=== PATIENT | female | born 2005 | race Caucasian/White ===

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

== ENCOUNTER 2025-02-20 18:24 | Emergency (ER) | payer OTHER, SELFPAY ==
[2025-02-20 18:43] VITALS: BP 153/95; PULSE 62; RESP 18; TEMP 36.6; O2SAT 98; BMI 28.8
--- NOTE | 2025-02-20 18:46 | ED_ITS ---
HPI - General Adult General Chief complaint: ETOH/Substance Use Stated complaint: ?OD on Fentanyl Time Seen by Provider: 02/20/25 18:45 Source: patient, RN notes reviewed and old records reviewed Mode of arrival: ambulatory Limitations: no limitations History of Present Illness ED Provider: Mariana HARRIS narrative: 19-year-old female presents for evaluation of ?I was just freaking out, I am okay now. ? The patient presented to triage quite anxious and animated. She was eager to leave. We are able to calm her down and she explain that she smoked fentanyl and had a panic attack She reports that she was concerned that she was overdosing. She got a ride to the hospital She denies any pain, she denies any intent to harm. She reports that she has take home Narcan at home Related Data Allergies Allergy/AdvReac Type Severity Reaction Status Date / Time No Known Allergies (No Known Allergy Verified 02/20/25 18:44 Allergies*) Review of Systems Review of Systems: Somewhat limited due to patient being guarded PMFSH Past Medical History Medical History No pertinent past medical history Physical Exam ED Vital Signs: Vital Signs - 24 hr 02/20/25 18:43 Temperature 98 F Pulse Rate 62 Respiratory Rate 18 Blood Pressure 153/95 H Pulse Oximetry 98 Oxygen Delivery Method Room Air BMI result Body Mass Index 28.8 Const General: healthy appearing, comfortable, alert and awake Nutritional Appearance: well nourished Orientation/consciousness: patient oriented x3 HENMT Head: Yes normocephalic and Yes atraumatic Eyes Eyelids: Yes eyelids normal Conjunctivae: conjunctivae normal Sclerae: sclerae normal Corneas: corneas normal Pupils: Equal, round and reactive pupils present EOM: EOMs intact bilaterally Neck Neck: Yes full ROM Resp Effort & Inspection: normal respiratory effort, able to speak in complete sentences and not labored Cardio Rate: regular rate Rhythm: regular rhythm GI Inspection: No distended Palpation (GI): Soft to palpation, not firm, nontender, no guarding and not rigid Skin General skin exam: elasticity normal Neuro General: patient oriented x3 Cranial nerves: Yes CN's II-XII intact bilaterally, Yes Equal, round and reactive pupils present and Yes Bilaterally intact EOM present Cognition (Neuro): normal cognition Extrem Other: Moving all extremities well without any obvious deformities Medical Decision Making Medical Decision Making MDM Narrative: 19-year-old female presents for evaluation of what she thought was an overdose on fentanyl. The patient is wide awake, ambulating independently. She is answering questions appropriately. The patient states that she had a few accidental overdoses in the last few weeks. She reports that she has take home Narcan at home. She was offered by myself and nursing take home Narcan, crisis evaluation, detox evaluation and she declines all this. She is requesting to leave. She is mildly hypertensive, but otherwise vital signs are stable. She is awake, alert and oriented, she did not express any suicidal intent. We explained to her that we recommend she stay for further evaluation but she ultimately decided against medical advice Differential Diagnosis Differential Diagnoses: The differential diagnosis associated with the presentation includes Substance abuse Anxiety Polysubstance abuse Opiate abuse Discharge Plan Discharge Clinical Impression: Substance abuse, Anxiety Patient Disposition: Left Against Medical Advice Instructions: Polysubstance Use Disorder (ED), Anxiety (ED) Additional Instructions: You are opting to leave prior to complete evaluation. You are leaving against medical advice. You declined evaluation by a care team or detox team. You declined take home Narcan You may return at any time for further evaluation and management. Print Language: St Helenian
--- NOTE | 2025-02-20 18:47 | PC.NURSE ---
patient self presented to the ED with concern for feeling weird after smoking fentanyl. patient stated she had a panic attack and was concern that she was OD. patient states she got a ride to the hospital. patient denies SI/HI, states she feels safe. patient very motivated to leave, patient antsy. patient denied needing take home narcan, denies any need for resources. patient is awake, alert and oriented, ambulatory with steady gait. refused dc papers/reg and take home narcan.
--- OUTSIDE RECORDS SUMMARY | 2025-02-20 21:34 | XMS_ITS | Clinical Summary ---
Author Organization [facility] Address [address] [place] [address] Phone Care Team Providers Care Pound Attendant Name Role Phone Physician, No Pcp Primary Care Provider Unavaila ble Allergies No known active allergies Medications hydrOXYzine HCL (ATARAX) 25 mg tablet Take 2 tablets (50 mg total) by mouth every 6 (six) hours for 3 days. 24 each 5 Active ondansetron ODT (ZOFRAN-ODT) 4 mg disintegrating tablet Let 1 tablet dissolve under the tongue three times daily as needed for nausea or vomiting. 10 tablet 5 01/31/20 25 famotidine (PEPCID) 20 mg tablet Take 1 tablet (20 mg total) by mouth 2 (two) times a day for 15 days. 30 tablet 5 02/08/20 25 ciprofloxacin (CIPRO) 500 mg tablet Take 1 tablet (500 mg total) by mouth 2 (two) times a day for 10 days. 20 tablet 5 02/12/20 25 ondansetron ODT (ZOFRAN-ODT) 4 mg disintegrating tablet Let 1 tablet dissolve under the tongue three times daily as needed for nausea or vomiting. 12 tablet 5 02/09/20 25 valACYclovir (VALTREX) 1 gram tablet Take 1 tablet (1,000 mg total) by mouth 2 (two) times a day for 7 days. 14 each 5 02/09/20 25 Active Problems No known active problems Encounters Date Type Department Care Team Description 02/01/2025 7:47 PM EDT - 02/01/2025 8:55 PM EDT Emergency [facility] Emergency [address] [phone] Lazaro Agosto MD Perichondritis of auricle, right (Primary Dx); Dyspepsia; Exposure to herpes Discharge Disposition: Home or Self Care 01/23/2025 5:05 PM EDT - 01/23/2025 7:08 PM EDT Emergency [facility] Emergency [address] [place] [address] Rich Sanchez MD Nausea and vomiting, unspecified vomiting type (Primary Dx); Alcoholic intoxication without complication (CMS/[facility] V24); Hypokalemia; Hypomagnesemia; Alcohol abuse Discharge Disposition: Home or Self Care 01/19/2025 7:28 PM EDT - 01/19/2025 7:55 PM EDT Emergency [facility] Emergency [address] [place] [phone] Panic attack as reaction to stress (Primary Dx); Homeless Discharge Disposition: Home or Self Care from Last 3 Months Surgical History Surgery Date Site/Laterality Comments OTHER SURGICAL HISTORY PROCEDURE: DENIES PREVIOUS SURGERY Medical History Medical History Date Comments Asthma DX:Asthma Strep throat 05/30/12 DX:Strep throat Wrist fracture, left 08/21/2013 DX:Wrist fr acture, left; COMMENT: [facility] Family History Medical History Relation Name Comments Asthma Brother 1 Relation Name Status Comments Brother 1 Brother 2 Alive 06/05 Father Alive Mother Alive Sister 1 Alive 07/06 Sister 2 Alive 08/2009 Social History Tobacco Use Types Packs/Day Years Used Date Smoking Tobacco: Every Day Cigarettes Smokeless Tobacco: Never Tobacco Cessation:Ready to Q uit: Not Asked; Counseling Given: Not Answered Alcohol Use Standard Drinks/Week Comments Not Currently 0 (1 standard drink = 0.6 oz pur e alcohol) Comments Unknown Sex and Gender Information Value Date Recorded Sex Assigned at Female 07/24/2024 2:56 PM EDT Legal Sex Female 3:36 AM EST Gender Identity Female 07/24/2024 2:56 PM EDT Sexual Orientation Choose not to disclose 2024 2:56 PM EDT Obstetrics History Last Filed Vital Signs Vital Sign Reading Time Taken Comments Blood Pressure 129/80 02/01/2025 8:09 PM EDT Pulse 75 02/01/2025 8:09 PM EDT Temperature 36.5 C (97.7 F) 02/01/2025 8:09 PM EDT Respiratory Rate 17 02/01/2025 8:09 PM EDT Oxygen Saturation 99% 02/01/2025 8:09 PM EDT Inhaled Oxygen Concentration - - Weight 83.9 kg (185 lb) 02/01/2025 7:17 PM EDT Height 170.2 cm (5' 7 ) 02/01/2025 7:17 PM EDT Body Mass Index 28.98 02/01/2025 7:17 PM EDT Plan of Treatment Health Maintenance Due Date Last Done Comments Gonorrhea/Chlamydia Screening 2003 Pneumococcal Vaccine: Pediatrics (0 to 5 Years) and At-Risk Patients (6 to 49 Years) (1 of 1 - PPSV23, PCV20, or PCV21) 08/07/2009 11/10/2004, 02/18/2004, 2003, Additional history exists Meningococcal B Vaccine (1 of 2 - Standard) 2019 Annual Well Child Visit (3-21 years old) 04/05/2022 04/30/2017, 04/23/2016, 04/22/2015, Additional history exists Cholesterol Screening (Lipid Panel) 04/05/2022 Social Influencers of Health Screening 04/05/2022 Depression Screening 05/03/2024 Cervical Cancer Screening: Pap Smear 08/07/2024 COVID-19 Vaccine ( - season) 2025 05/09/2021, 07/22/2020, 07/01/2020 Influenza Vaccine (#1) 2025 , 03/08/2020, 03/05/2017, Additional history exists DTaP,Tdap,and Td Vaccines (7 - Td or Tdap) 04/22/2025 04/22/2015, 01/20/2008, 11/10/2004, Additional history exists RSV Immunization Adult Patients (1 - 1-dose 75+ series) 08/07/2078 HIB Vaccines Completed 11/10/2004, 10/31, 02/18/2004, Additional history exists IPV Vaccines Completed 01/20/2008, 10/31, 06/10/2004, Additional history exists MMR Vaccines Completed 01/20/2008, 08/22/2004 Varicella Vaccines Completed 01/20/2008, 08/22/2004 HPV Vaccines Completed 11/14/2015, 11/2015, 04/22/2015 HIV Screening Completed 10/10/2018 Hepatitis C Screening Completed 10/10/2018 Hepatitis B Vaccines Completed 10/13/2018, 06/10/2004, 2003, Additional history exists Meningococcal ACWY Vaccine Completed 09/15/2019, Hepatitis A Vaccines Completed 02/25/2021, 09/20/19 RSV Immunization Patients Under 20 months Aged Out No longer eligible based on patient's age to complete this topic Procedures Procedure Name Priority Date/Time Associated Diagnosis Comments BAIN URINE CULTURE TUBE STAT 02/01/2025 8:13 PM EDT URINALYSIS WITH REFLEX MICROSCOPIC AND CULTURE STAT 02/01/2025 8:13 PM EDT URINALYSIS WITH REFLEX MICROSCOPIC AND CULTURE STAT 02/01/2025 8:13 PM EDT CULTURE URINE STAT 02/01/2025 8:13 PM EDT LIPASE STAT Add-on 02/01/2025 7:38 PM EDT CBC WITH AUTO DIFFERENTIAL STAT 02/01/2025 7:38 PM EDT COMPREHENSIVE METABOLIC PANEL STAT 02/01/2025 7:38 PM EDT CBC AND DIFFERENTIAL STAT 02/01/2025 7:38 PM EDT ETHANOL STAT 01/23/2025 5:26 PM EDT CBC WITH AUTO DIFFERENTIAL STAT 01/23/2025 5:26 PM EDT LIPASE STAT 01/23/2025 5:26 PM EDT MAGNESIUM STAT 01/23/2025 5:26 PM EDT COMPREHENSIVE METABOLIC PANEL STAT 01/23/2025 5:26 PM EDT CBC AND DIFFERENTIAL STAT 01/23/2025 5:26 PM EDT POC , URINE DIAGNOSTIC STAT 01/23/2025 5:19 PM EDT URINALYSIS WITH REFLEX MICROSCOPIC STAT 01/23/2025 5:16 PM EDT URINALYSIS WITH REFLEX MICROSCOPIC STAT 01/23/2025 5:16 PM EDT from Last 3 Months Results * (ABNORMAL) Urinalysis with reflex microscopic and culture (02/01/2025 8:13 PM EDT) Specific Bowers Urine 1.027 1.003 - 1.030 LAB URINALYSIS - AUTOMATED METHOD 02/01/2025 9:05 PM [facility] pH, Urine 6.0 5.0 - 8.0 pH LAB URINALYSIS - AUTOMATED METHOD 02/01/2025 9:05 PM [facility] Leukocytes, Urine Small(A) Negative LAB URINALYSIS - AUTOMATED METHOD 02/01/2025 9:05 PM [facility] Nitrite, Urine Negative Negative LAB URINALYSIS - AUTOMATED METHOD 02/01/2025 9:05 PM [facility] Protein, Urine 30(A) <=Trace mg/dL LAB URINALYSIS - AUTOMATED METHOD 02/01/2025 9:05 PM [facility] Glucose, Urine Negative Negative mg/dL LAB URINALYSIS - AUTOMATED METHOD 02/01/2025 9:05 PM [facility] Ketones, Urine Trace(A) Negative mg/dL LAB URINALYSIS - AUTOMATED METHOD 02/01/2025 9:05 PM [facility] Urobilinogen, Urine 1.0 0.2 - 1.0 mg/dL LAB URINALYSIS - AUTOMATED METHOD 02/01/2025 9:05 PM [facility] Bilirubin, Urine Negative Negative LAB URINALYSIS - AUTOMATED METHOD 02/01/2025 9:05 PM [facility] Blood, Urine Negative Negative LAB URINALYSIS - AUTOMATED METHOD 02/01/2025 9:05 PM [facility] RBC, Urine 5.9(H) 0 - 4 /HPF LAB URINALYSIS - AUTOMATED METHOD 02/01/2025 9:05 PM [facility] WBC, Urine 22.1(H) 0 - 4 /HPF LAB URINALYSIS - AUTOMATED METHOD 02/01/2025 9:05 PM [facility] Squamous Epithelial, Urine 82(H) 0 - 60 /LPF LAB URINALYSIS - AUTOMATED METHOD 02/01/2025 9:05 PM [facility] Bacteria, Urine Few(A) Negative /HPF LAB URINALYSIS - AUTOMATED METHOD 02/01/2025 9:05 PM [facility] Hyaline Casts, Urine 4.8(H) 0 - 3 /LPF LAB URINALYSIS - AUTOMATED METHOD 02/01/2025 9:05 PM [facility] Urine Urine specimen obtained by clean catch procedure / Unknown Non-blood Collection / Unknown 02/01/2025 8:13 PM EDT 02/01/2025 8:36 PM EDT us Dino Carbajal MD LAB URINE ORDERABLES Danuta charlette Result [facility] [address] [place] [address], * Bain urine culture tube (02/01/2025 8:13 PM EDT) Pathologist [facility] Extra Tube Hold for add-ons. 02/01/2025 10:02 PM EDT [facility] Comment:Auto resulted. Urine Urine specimen obtained by clean catch procedure / Unknown Non-blood Collection / Unknown 02/01/2025 8:13 PM EDT 02/01/2025 8:36 PM EDT Dino Carbajal MD LAB URINE ORDERABLES Danuta l Result Performing Organization Address City/[facility]/ZIP Co de Phone Number [facility] [address] [place] [address], [place] [phone] * Culture urine (02/01/2025 8:13 PM EDT) [facility] Culture, Urine >100,000 CFU/mL Mixed bacterial morphotypes present suggestive of possible contamination during collection. Suggest appropriate recollection if clinically indicated. 02/03/2025 12:39 PM EDT [facility] Urine Urine specimen obtained by clean catch procedure / Unknown Non-blood Collection / Unknown 02/01/2025 8:13 PM EDT 02/01/2025 9:04 PM EDT Dino Carbajal MD LAB MICROBIOLOGY - GENERA L ORDERABLES Final Result Performing Organization Address [facility]/ZIP Co de Phone Number [facility] [address] [place] [address], [place] [phone] * (ABNORMAL) CBC auto differential (02/01/2025 7:38 PM EDT) Only the most recent of2 resultswithin the time period is included. Pathologist [facility] WBC 5.1 4.8 - 10.8 K/[facility] LAB HEMETOLOGY METHOD 02/01/2025 7:59 PM EDT [facility] RBC 4.90(H) 3.80 - 4.80 M/[facility] LAB HEMETOLOGY METHOD 02/01/2025 7:59 PM EDT [facility] Hemoglobin 14.2 11.5 - 16.0 g/dL LAB HEMETOLOGY METHOD 02/01/2025 7:59 PM EDT [facility] Hematocrit 44.8 35.0 - 47.0 % LAB HEMETOLOGY METHOD 02/01/2025 7:59 PM EDT [facility] MCV 91.4 79.0 - 98.0 FL LAB HEMETOLOGY METHOD 02/01/2025 7:59 PM EDT [facility] MCH 29.0 27.0 - 32.0 pcg LAB HEMETOLOGY METHOD 02/01/2025 7:59 PM EDT [facility] MCHC 31.7(L) 32.0 - 37.0 g/dL LAB HEMETOLOGY METHOD 02/01/2025 7:59 PM [facility] RDW 13.4 11.0 - 15.0 % LAB HEMETOLOGY METHOD 02/01/2025 7:59 PM EDT [facility] Platelets 231 130 - 400 K/mcL LAB HEMETOLOGY METHOD 02/01/2025 7:59 PM [facility] MPV 10.6 7.0 - 11.0 FL LAB HEMETOLOGY METHOD 02/01/2025 7:59 PM [facility] NRBC 0.0 <1.0 % LAB HEMETOLOGY METHOD 02/01/2025 7:59 PM EDT [facility] NRBC Absolute 0.00 <0.10 K/mcL LAB HEMETOLOGY METHOD 02/01/2025 7:59 PM EDT [facility] Neutrophils Relative 47.2 % LAB HEMETOLOGY METHOD 02/01/2025 7:59 PM EDT [facility] Lymphocytes Relative 33.1 % LAB HEMETOLOGY METHOD 02/01/2025 7:59 PM EDT [facility] Monocytes Relative 11.5 % LAB HEMETOLOGY METHOD 02/01/2025 7:59 PM EDT [facility] Eosinophils Relative 6.0 % LAB HEMETOLOGY METHOD 02/01/2025 7:59 PM EDT [facility] Basophils Relative 1.0 % LAB HEMETOLOGY METHOD 02/01/2025 7:59 PM EDT [facility] Immature Granulocytes Relative 1.2 % LAB HEMETOLOGY METHOD 02/01/2025 7:59 PM EDT [facility] Neutrophils Absolute 2.43 1.50 - 7.00 K/mcL LAB HEMETOLOGY METHOD 02/01/2025 7:59 PM EDT [facility] Lymphocytes Absolute 1.70 1.00 - 5.00 K/mcL LAB HEMETOLOGY METHOD 02/01/2025 7:59 PM EDT [facility] Monocytes Absolute 0.59 0.20 - 1.00 K/mcL LAB HEMETOLOGY METHOD 02/01/2025 7:59 PM EDT [facility] Eosinophils Absolute 0.31 0.00 - 0.50 K/mcL LAB HEMETOLOGY METHOD 02/01/2025 7:59 PM EDT [facility] Basophils Absolute 0.05 0.00 - 0.20 K/mcL LAB HEMETOLOGY METHOD 02/01/2025 7:59 PM EDT [facility] Immature Granulocytes Absolute 0.06(H) 0.00 - 0.03 K/mcL LAB HEMETOLOGY METHOD 02/01/2025 7:59 PM EDT [facility] Blood Venous blood specimen / Unknown Venipuncture / Unknown 02/01/2025 7:38 PM EDT 02/01/2025 7:46 PM EDT us Dino Carbajal MD LAB BLOOD ORDERABLES Danuta ovalles Result [facility] [address] [place] [address], [place] [phone] * Lipase (02/01/2025 7:38 PM EDT) Only the most recent of2 resultswithin the time period is included. Lipase 41 13 - 75 unit/L LAB CHEMISTRY METHOD 02/01/2025 8:17 PM EDT [facility] Blood Venous blood specimen / Unknown Venipuncture / Unknown 02/01/2025 7:38 PM EDT 02/01/2025 7:46 PM EDT Lazaro Agosto MD LAB BLOOD ORDERABLES Final Resul t [facility] [address] [place] [address], [place] [phone] * Comprehensive metabolic panel (02/01/2025 7:38 PM EDT) Only the most recent of2 resultswithin the time period is included. Sodium 135 133 - 145 mmol/L LAB CHEMISTRY METHOD 02/01/2025 8:18 PM EDT [facility] Potassium 4.2 3.5 - 5.5 mmol/L LAB CHEMISTRY METHOD 02/01/2025 8:18 PM [facility] Chloride 100 96 - 110 mmol/L LAB CHEMISTRY METHOD 02/01/2025 8:18 PM [facility] CO2 30 21 - 32 mmol/L LAB CHEMISTRY METHOD 02/01/2025 8:18 PM T [facility] Anion Gap 5 3 - 11 LAB CHEMISTRY METHOD 02/01/2025 8:18 PM [facility] Glucose 97 70 - 100 mg/dL LAB CHEMISTRY METHOD 02/01/2025 8:18 PM [facility] BUN 6 5 - 25 mg/dL LAB CHEMISTRY METHOD 02/01/2025 8:18 PM [facility] Creatinine 0.68 0.50 - 1.10 mg/dL LAB CHEMISTRY METHOD 02/01/2025 8:18 PM [facility] eGFR 127 >=60 mL/min/1. 73m2 LAB CHEMISTRY METHOD 02/01/2025 8:18 PM [facility] Comment:Calculation based on the Chronic Kidney Disease Epidemiology Collaboration (CKD-EPI) equation refit without adjustment for race. BUN/Creatinine Ratio 8.8 LAB CHEMISTRY METHOD 02/01/2025 8:18 PM [facility] Calcium 9.5 8.5 - 10.5 mg/dL LAB CHEMISTRY METHOD 02/01/2025 8:18 PM [facility] AST (SGOT) 23 10 - 42 unit/L LAB CHEMISTRY METHOD 02/01/2025 8:18 PM [facility] ALT (SGPT) 29 10 - 60 unit/L LAB CHEMISTRY METHOD 02/01/2025 8:18 PM [facility] Alkaline Phosphatase 59 42 - 121 unit/L LAB CHEMISTRY METHOD 02/01/2025 8:18 PM [facility] Total Protein 7.5 6.0 - 8.0 g/dL LAB CHEMISTRY METHOD 02/01/2025 8:18 PM [facility] Albumin 4.1 3.2 - 5.0 g/dL LAB CHEMISTRY METHOD 02/01/2025 8:18 PM [facility] Total Bilirubin 0.5 0.0 - 1.4 mg/dL LAB CHEMISTRY METHOD 02/01/2025 8:18 PM [facility] Blood Venous blood specimen / Unknown Venipuncture / Unknown 02/01/2025 7:38 PM EDT 02/01/2025 7:46 PM EDT us Dino Carbajal MD LAB BLOOD ORDERABLES Danuta l Result [facility] [address] [place] [address], * (ABNORMAL) Magnesium (01/23/2025 5:26 PM EDT) Magnesium 1.6(L) 1.9 - 2.6 mg/dL LAB CHEMISTRY METHOD 01/23/2025 6:17 PM EDT [facility] Blood Venous blood specimen / Unknown Venipuncture / Unknown 01/23/2025 5:26 PM EDT 01/23/2025 5:46 PM EDT Rich Sanchez MD LAB BLOOD ORDERABLES Final R esult Performing Organization Address [facility] Co de Phone Number [facility] [address] [place] [address], * (ABNORMAL) Ethanol (01/23/2025 5:26 PM EDT) [facility] Ethanol Level 116(H) 0 - 10 mg/dL LAB CHEMISTRY METHOD 01/23/2025 6:17 PM EDT [facility] Blood Venous blood specimen / Unknown Venipuncture / Unknown 01/23/2025 5:26 PM EDT 01/23/2025 5:46 PM EDT Rich Sanchez MD LAB BLOOD ORDERABLES Final R esult [facility] [address] [place] [address], [place] [phone] * POC , urine manually resulted (01/23/2025 5:19 PM EDT) HCG, Ur POC Negative Negative POC hCG Int QC Pass? Yes Yes Urine Urine specimen obtained by clean catch procedure / Unknown 01/23/2025 5:19 PM EDT Rich Sanchez MD POINT OF CARE TEST ENTER/BHAVESH T ORDERABLES Final Result * (ABNORMAL) Urinalysis with reflex microscopic (01/23/2025 5:16 PM EDT) Specific Bowers Urine 1.023 1.003 - 1.030 LAB URINALYSIS - AUTOMATED METHOD 01/23/2025 5:59 PM [facility] pH, Urine 6.5 5.0 - 8.0 pH LAB URINALYSIS - AUTOMATED METHOD 01/23/2025 5:59 PM [facility] Leukocytes, Urine Negative Negative LAB URINALYSIS - AUTOMATED METHOD 01/23/2025 5:59 PM [facility] Nitrite, Urine Negative Negative LAB URINALYSIS - AUTOMATED METHOD 01/23/2025 5:59 PM [facility] Protein, Urine Trace <=Trace mg/dL LAB URINALYSIS - AUTOMATED METHOD 01/23/2025 5:59 PM [facility] Glucose, Urine Negative Negative mg/dL LAB URINALYSIS - AUTOMATED METHOD 01/23/2025 5:59 PM [facility] Ketones, Urine Trace(A) Negative mg/dL LAB URINALYSIS - AUTOMATED METHOD 01/23/2025 5:59 PM [facility] Urobilinogen, Urine 1.0 0.2 - 1.0 mg/dL LAB URINALYSIS - AUTOMATED METHOD 01/23/2025 5:59 PM [facility] Bilirubin, Urine Negative Negative LAB URINALYSIS - AUTOMATED METHOD 01/23/2025 5:59 PM [facility] Blood, Urine Negative Negative LAB URINALYSIS - AUTOMATED METHOD 01/23/2025 5:59 PM [facility] Urine Urine specimen obtained by clean catch procedure / Unknown Non-blood Collection / Unknown 01/23/2025 5:16 PM EDT 01/23/2025 5:45 PM EDT us Rich Sanchez MD LAB URINE ORDERABLES Final R esult [facility] ([facility]) [facility] [address] [place] [address], [place] [phone] from Last 3 Months Insurance [facility] MEDICAID ADVANTAGE Care Teams Pound Attendant Relationship Specialty Start Date End Date Physician, No Pcp PCP - General 11/15/24
== END 2025-02-20 18:53 | disposition left against medical advice (07) ==
PROVIDERS: Emergency Provider Emergency Medicine
DX: F11.90 Opioid use, unspecified, uncomplicated (principal); F41.0 Panic disorder [episodic paroxysmal anxiety]; F41.1 Generalized anxiety disorder
CPT/HCPCS: 99281; 99282

== ENCOUNTER 2025-03-03 16:51 | Emergency (ER) | payer OTHER, SELFPAY ==
--- OUTSIDE RECORDS SUMMARY | 2018-12-22 06:45 | XMS_ITS | Continuity of Care Document ---
Author Organization [facility] vices Address [address] [place] [address] Phone Care Team Providers Care Aircraft Designer Name Role Phone Fercho Lind RDH Unavailable [...] Diagnoses Date Provider Providers Copied on Encounter [facility], [address] [place] [address], [address], [place] tel:[phone] [facility] Dental Problems related to other legal circumstancesRisk for dental caries, high 2-201 9 Diogo Brantley. 500 [facility], [id number] [address] [place] [address], [id number] , [place]. tel:[phone] OFFICE/OUTPA TIENT VISIT, NEW [facility], [address] [place], [address], [place] tel:[phone] [facility] Pediatrics MDE (chief complaint) Problems related to other legal circumstancesDieta ry counseling and surveillanceEncoun ter for exam of ears and hearing w/o abnormal findingsEncounter for exam of eyes and vision w/o abnormal findingsMild intermittent asthma without complicationMultip le allergiesMyopia of both eyesObesity (BMI 30.0-34.9) 9 Bills Kailee. [address], [id number] [address], [place], [address], [place]. 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
--- NOTE | ~2025-03-03 | CT_ITS ---
CLINICAL HISTORY: R ear infection pus drainage from ear --- Additional Notes or Special Instructions: +mastoid ttp CT temporal bone without contrast Comparison: None provided Findings: Right temporal bone: Mild thickening of the right tympanic membrane and mild skin thickening within the external auditory canal. Middle ear ossicles are intact. No fluid in the middle ear cavity. Unremarkable cochlea and semicircular canals. Seventh nerve courses are unremarkable. Mastoid air cells are clear. Left temporal bone: No exterrnal auditory canal pathology. Tympanic membranes intact. Middle ear ossicles are intact. No fluid in the middle ear cavity. Unremarkable cochlea and semicircular canals. Seventh nerve courses are unremarkable. Mastoid air cells are clear. Temporomandibular joints are intact. Unremarkable orbital contents. Mild mucosal thickening left maxillary sinus No foreign bodies. IMPRESSION: Mild thickening of the right tympanic membrane and mild skin thickening within the right external auditory canal. No other acute findings. This document has been electronically signed by: Viridiana Pedraza MD on 03/03/2025 18:56:21
[2025-03-03 17:04] VITALS: BP 127/82; PULSE 77; RESP 18; TEMP 36.6; O2SAT 94; BMI 28.6
--- NOTE | 2025-03-03 17:04 | ED_ITS ---
HPI - Ear Problem General Chief complaint: Ear Problems Stated complaint: rt ear infection Time Seen by Provider: 03/03/25 19:45 Source: patient, RN notes reviewed and old records reviewed Mode of arrival: ambulatory History of Present Illness ED Provider: Radha Simms PA-C HPI Narrative: 19-year-old female with no significant past medical history presenting to ED complaining of persistent right ear infection with pus drainage noted today. [facility] she went to urgent care a few days ago and was started on Augmentin which is causing her nausea/vomiting. Admits to taking about 3 days' worth of antibiotic. 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 States this is her 4th ear infection to the same ear. Denies hearing loss, injury, fever, chills, sore throat Related Data Previous Rx's ?Medication ?Instructions ?Recorded acetaminophen 500 mg tablet 500 mg PO Q6H PRN fever or pain 03/03/25 (Tylenol Extra Strength) #14 tabs ciprofloxacin 0.3 %-dexamethasone 4 drp otic (ear) rig ht Q12H 7 days 03/03/25 0.1 % ear drops,suspension #7.5 mL hydrocortisone 0.5 % topical cream 1 appl topical BID PRN rash #28.4 03/03/25 grams ibuprofen 600 mg tablet 600 mg PO Q8H PRN fever or p ain 03/03/25 #14 tabs ondansetron 4 mg disintegrating 4 mg PO Q8H PRN nausea and 03/03/25 tablet vomiting #10 tabs Allergies Allergy/AdvReac Type Severity Reaction Status Date / Time No Known Allergies (No Known Allergy Verified 03/03/25 17:07 Allergies*) Review of Systems 2 Review of Systems: Yes all other systems are reviewed and are negative Constitutional: Constitutional: Reports as per [facility] Past Medical History Attestation statement: The following information was validated with the patient. Source: old records reviewed Medical History No pertinent past medical history Social History Social History Advance Directives: No Advance Directives Information Provided: No Do you have a plan to hurt others: No Plan Physical Exam 2 Vital Signs: Vital Signs: Last Vital Signs Temp 97.9 F 03/03/25 17:04 Pulse 77 03/03/25 17:04 Resp 18 03/03/25 17:04 BP 127/82 03/03/25 17:04 Pulse Ox 94 03/03/25 17:04 O2 Del Method Room Air 03/03/25 17:04 BMI result Body Mass Index 28.6 Const: General: cooperative, healthy appearing and no acute distress O rientation/consciousness: patient oriented x3 Limitations: no limitations HEENT: Head: Yes normal to inspection and Yes atraumatic Ears: hearing grossly normal bilaterally, TM normal on the left, mastoids normal on the right tender, Abnormal EAC present edema on the right and EAC tenderness; no otic discharge, external ear abnormal auricular tenderness and pain with movement of external ear and TM abnormal with loss of landmarks on the right and scarred on the right; not erythematous General nose exam: Normal external nose present Face and sinus: Yes normal facial exam Mouth: Normal oral and palatal mucosa present Throat: Yes uvula midline, No peritonsillar mass and No uvular edema Eyes: General: appearance normal, both eyes and all related structures EOM: EOMs intact bilaterally Neck: Neck: Yes normal visual inspection and Yes no meningeal signs Resp: Effort & Inspection: normal respiratory effort and no respiratory distress Cardio: Rate: regular rate Skin: Wounds: no wounds Neuro: General: patient oriented x3, tone normal and no meningeal signs C ranial nerves: Yes CN's II-XII intact bilaterally Gait exam (Neuro): Normal gait present Extrem: General: Yes normal to inspection Course Course Course Narrative: This is a Rapid Medical Exam performed in triage by Radha Simms PA-C. Full HPI, ROS and PE to be performed by primary ED provider. 19-year-old female presenting to the ED c/o persistent right ear infection with pus drainage today. States went to urgent care a few days ago was started on Augmentin however is nauseous/vomiting with taking medication. States was also started on ear drops however has not picked them up yet due to insurance preauthorization. States this is her 4th antibiotic for this ear infection. PE: + swollen external ear. + mastoid and tragus tenderness Plan: Labs, CT -labs reassuring CT mastoid IMPRESSION: Mild thickening of the right tympanic membrane and mild skin thickening within the right external auditory canal. No other acute findings. > had lengthy discussion with the patient about compliance with oral antibiotics and her nausea > she would like to try Zofran with continuation of current antibiotic. Will not change oral abx at this time. Will also prescribe Ciprodex drops. Upon discharge she reports that she has eczema on her feet, requesting a cream for eczema. Discussed with patient she needs to have close follow up with ENT/her PCP. Results discussed with patient including worrisome signs and symptoms and strict return precautions, and when to return to the emergency department. They verbalized understanding and feel safe for discharge at this time. Medical Decision Making Medical Decision Making [facility] Narrative: 19-year-old female with no significant past medical history presenting to ED complaining of persistent right ear infection with pus drainage noted today. On exam vital signs stable, NAD, nontoxic appearing, PE as above. Right external ear/auditory canal w/edema & swelling. No odor. No active drainage noted. + mastoid tenderness. Concern for otitis externa vs media vs mastoiditis vs ?malignant otitis externa Plan: Labs, CT, ENT follow up Please refer to course for remaining clinical decision making, interpretation of labs/imaging results, and discussions with consultants and/or family members. Differential Diagnosis Differential Diagnoses: The differential diagnosis associated with the presentation includes As above Admission/Observation Consideration of admission/observation: Escalation of care including admission/observation considered Lab Data [facility] Lab Attestation statement: I reviewed the patient's lab results. 03/03/25 17:29 03/03/25 17:29 Labs: Lab Results 03/03/25 Range/Units 17:29 WBC 4.5 L (4.8-10.8) X10*3/uL RBC 4.61 (4.20-5.50) X10*6/uL Hgb 13.1 (12.0-16.0) g/dl Hct 39.6 (37.0-47.0) % MCV 85.9 (80.0-98.0) fL MCH 28.4 (27.0-33.0) pg MCHC 33.1 (31.0-35.0) g/dl RDW 13.1 (11.0-16.0) % Plt Count 208 (160-400) X10*3/uL MPV 11.1 (9.4-12.3) fL Immature Gran % (Auto) 0.2 (0.0-0.4) % Neut % (Auto) 43.8 L (45-73) % Lymph % (Auto) 37.0 (20-40) % [place] % (Auto) 8.3 (2-11) % Eos % (Auto) 10.3 H (0-4) % Baso % (Auto) 0.4 (0-2) % Lymph # (Auto) 1.7 (1.2-4.9) X10*3/uL [place] # (Auto) 0.4 (0.1-1.2) X10*3/uL Eos # (Auto) 0.5 H (0.0-0.4) X10*3/uL Baso # (Auto) 0.0 (0.0-0.2) X10*3/uL Abs Immat Gran (auto) 0.01 (0.00-0.03) X10*3/uL Absolute Neuts (auto) 2.0 (2.0-8.3) x10*3/uL Absolute Nucleated RBC 0.000 (0.0-0.012) X10*3/uL Nucleated RBC % (auto) 0.0 (0.0-0.2) /100WBC ESR 8 (0-20) MM/HR Sodium 139 (135-145) mmol/L Potassium 4.1 (3.3-5.1) mmol/L Chloride 108 (96-108) mmol/L Carbon Dioxide 25 (22-29) mmol/L Anion Gap 10 L (12-20) BUN 10 (9-16) mg/dL Creatinine 0.80 (0.5-1.4) mg/dL Estim Creat Clear Calc 123.0 Estimated GFR > 60 Random Glucose 93 (60-115) mg/dL Calcium 9.0 (8.4-10.2) mg/dL C-Reactive Protein < 0.10 (< or = 0.50) mg/dL Independent Interpretation I performed an independent interpretation of an: CT Scan Radiology Impression Discussion of test interpretation with radiology: I have reviewed the radiologist's reading. External Record Review External record reviewed: Inpatient record, Office record, Outpatient record, Prior outpatient labs, Prior outpatient radiology, Primary care record and Outside ED record Tests considered The following testing was considered but not selected: As above Prescription Management I considered prescription management with: Pain Medication and Antibiotic Chronic Conditions Patient?s care impacted by: Other Social Determinants Patient?s care significantly limited by Social Determinants of Health including: Low income and Problems related to primary support group Discharge Plan Discharge Clinical Impression: Otitis externa Patient Disposition: Home, Self-Care Instructions: Swimmer's [facility] (ED) Additional Instructions: Your CAT scan and blood work is reassuring Continue taking previously prescribed antibiotic. Take with food. Zofran as an antinausea medication which will help with nausea and vomiting Ciprodex drops are prescription ear drops with a steroid which will help with swelling/UR infection Take ibuprofen and Tylenol as needed for pain Hydrocortisone cream as a steroid cream for your eczema. Avoid application to face You need to follow up with your PCP as well as ENT. Call to make an appointment If her symptoms persist or worsen, you develop any hearing loss, fevers, continued drainage from the ear return to the ED Prescriptions: New acetaminophen [Tylenol Extra Strength] 500 mg tablet 500 mg PO Q6H PRN (Reason: fever or pain) Qty: 14 0RF ibuprofen 600 mg tablet 600 mg PO Q8H PRN (Reason: fever or pain) Qty: 14 0RF ondansetron 4 mg tablet,disintegrating 4 mg PO Q8H PRN (Reason: nausea and vomiting) Qty: 10 0RF hydrocortisone 0.5 % cream 1 appl topical BID PRN (Reason: rash) Qty: 28.4 0RF ciprofloxacin-dexamethasone 0.3-0.1 % drops,suspension 4 drp otic (ear) right Q12H 7 Days Qty: 7.5 0RF Print Language: Malian
[2025-03-03 17:34] LABS: MANUAL DIFF FLAG NO
--- OUTSIDE RECORDS SUMMARY | 2025-03-03 17:34 | XMS_ITS | Clinical Summary ---
Author Organization [facility] Address [address] [place] [address] Phone Care Team Providers Care Accountant Supervisor Name Role Phone Physician, No Pcp Primary Care Provider Unavaila ble Allergies No known active allergies Medications hydrOXYzine HCL (ATARAX) 25 mg tablet Take 2 tablets (50 mg total) by mouth every 6 (six) hours for 3 days. 24 each 5 Active famotidine (PEPCID) 20 mg tablet Take 1 [...] Encounters Date Type Department Care Team Description 02/22/2025 2:56 PM EDT - 02/22/2025 6:24 PM EDT Emergency [facility] Emergency [address] [place] [address] Meche Horn MD Discharge Disposition: Left Against Medical Advice 02/01/2025 7:47 PM EDT - 02/01/2025 8:55 PM EDT Emergency [facility] Emergency [address] [place] [address] Lazaro Agosto MD Perichondritis of auricle, right (Primary Dx); Dyspepsia; Exposure to herpes Discharge Disposition: Home or Self Care 01/23/2025 5:05 PM EDT - 01/23/2025 7:08 PM EDT Emergency [facility] Emergency [address] [place] [address] Rich Sanchez MD Nausea and vomiting, unspecified vomiting type (Primary Dx); Alcoholic intoxication without complication ([facility] V24); Hypokalemia; Hypomagnesemia; Alcohol abuse Discharge Disposition: Home or Self Care 01/19/2025 7:28 PM EDT - 01/19/2025 7:55 PM EDT Emergency [facility] Emergency [address] [place] [address] Panic attack as reaction to stress (Primary Dx); Homeless Discharge Disposition: Home or Self Care from Last 3 Months Surgical History Surgery Date Site/Laterality Comments OTHER SURGICAL HISTORY PROCEDURE: DENIES PREVIOUS SURGERY Medical History Medical History Date Comments Asthma DX:Asthma Strep throat 05/30/12 DX:Strep throat Wrist fracture, left 08/21/2013 DX:Wrist fr acture, left; COMMENT: [facility] Family History Medical History Relation Name [...] Sign Reading Time Taken Comments Blood Pressure 119/68 02/22/2025 3:16 PM EDT Pulse 87 02/22/2025 3:16 PM EDT Temperature 37.3 C (99.1 F) 02/22/2025 3:16 PM EDT Respiratory Rate 18 02/22/2025 3:16 PM EDT Oxygen Saturation 96% 02/22/2025 3:16 PM EDT Inhaled Oxygen Concentration - - Weight 81.6 kg (180 lb) 02/22/2025 3:16 PM EDT Height 170.2 cm (5' 7 ) 02/22/2025 3:16 PM EDT Body Mass Index 28.19 02/22/2025 3:16 PM EDT Plan of Treatment Health Maintenance [...] Screening: Pap Smear 08/07/2024 COVID-19 Vaccine ( season) 2025 05/09/2021, 07/22/2020, 07/01/2020 Influenza Vaccine [...] microscopic and culture (02/01/2025 8:13 PM EDT) Pathologist [facility] Specific [place] Urine 1.027 1.003 - 1.030 LAB URINALYSIS - AUTOMATED METHOD 02/01/2025 9:05 PM [facility] pH, Urine 6.0 5.0 - 8.0 pH LAB URINALYSIS - AUTOMATED METHOD 02/01/2025 9:05 PM [facility] Leukocytes, Urine Small(A) Negative LAB URINALYSIS - AUTOMATED METHOD 02/01/2025 9:05 PM [facility] Nitrite, Urine Negative Negative LAB URINALYSIS - AUTOMATED METHOD 02/01/2025 9:05 PM [facility] Protein, Urine 30(A) <=Trace mg/dL LAB URINALYSIS - AUTOMATED METHOD 02/01/2025 9:05 PM [facility] Glucose, Urine Negative Negative mg/dL LAB URINALYSIS - AUTOMATED METHOD 02/01/2025 9:05 PM [facility] Ketones, Urine Trace(A) Negative mg/dL LAB URINALYSIS - AUTOMATED METHOD 02/01/2025 9:05 PM [facility] Urobilinogen, Urine 1.0 0.2 - 1.0 mg/dL LAB URINALYSIS - AUTOMATED METHOD 02/01/2025 9:05 PM [facility] Bilirubin, Urine Negative Negative LAB URINALYSIS - AUTOMATED METHOD 02/01/2025 9:05 PM [facility] Blood, Urine Negative Negative LAB URINALYSIS - AUTOMATED METHOD 02/01/2025 9:05 PM [facility] RBC, Urine 5.9(H) 0 - 4 /HPF LAB URINALYSIS - AUTOMATED METHOD 02/01/2025 9:05 PM [facility] WBC, Urine 22.1(H) 0 - 4 /HPF LAB URINALYSIS - AUTOMATED METHOD 02/01/2025 9:05 PM [facility] Squamous Epithelial, Urine 82(H) 0 - 60 /LPF LAB URINALYSIS - AUTOMATED METHOD 02/01/2025 9:05 PM [facility] Bacteria, Urine Few(A) Negative /HPF LAB URINALYSIS - AUTOMATED METHOD 02/01/2025 9:05 PM [facility] Hyaline Casts, Urine 4.8(H) 0 - 3 /LPF LAB URINALYSIS - AUTOMATED METHOD 02/01/2025 9:05 PM [facility] Urine Urine specimen obtained by clean catch procedure / Unknown Non-blood Collection / Unknown 02/01/2025 8:13 PM EDT 02/01/2025 8:36 PM EDT us Dino Carbajal MD LAB URINE ORDERABLES Danuta charlette Result [facility] [address] [place] [address], * Bain urine culture tube (02/01/2025 8:13 PM EDT) Pathologist [facility] Extra Tube Hold for add-ons. 02/01/2025 10:02 PM EDT [facility] Comment:Auto resulted. Urine Urine specimen obtained by clean catch procedure / Unknown Non-blood Collection / Unknown 02/01/2025 8:13 PM EDT 02/01/2025 8:36 PM EDT Dino Carbajal MD LAB URINE ORDERABLES Danuta l Result Performing Organization Address City/[facility]/ZIP Co de Phone Number [facility] [address] [place] [address], [place] [phone] * Culture urine (02/01/2025 8:13 PM EDT) [facility] Culture, Urine >100,000 CFU/mL Mixed bacterial morphotypes present suggestive of possible contamination during collection. Suggest appropriate recollection if clinically indicated. 02/03/2025 12:39 PM EDT [facility] Urine Urine specimen obtained by clean catch procedure / Unknown Non-blood Collection / Unknown 02/01/2025 8:13 PM EDT 02/01/2025 9:04 PM EDT Dino Carbajal MD LAB MICROBIOLOGY - GENERA L ORDERABLES Final Result Performing Organization Address City/[facility]/ZIP Co de Phone Number [facility] [address] [place] [address], [place] [phone] * (ABNORMAL) CBC auto differential (02/01/2025 7:38 PM EDT) Only the most recent of2 resultswithin the time period is included. Pathologist [facility] WBC 5.1 4.8 - 10.8 K/[facility] LAB HEMETOLOGY METHOD 02/01/2025 7:59 PM EDT [facility] RBC 4.90(H) 3.80 - 4.80 M/mcL LAB HEMETOLOGY METHOD 02/01/2025 7:59 PM EDT [facility] Hemoglobin 14.2 11.5 - 16.0 g/dL LAB HEMETOLOGY METHOD 02/01/2025 7:59 PM EDT [facility] Hematocrit 44.8 35.0 - 47.0 % LAB HEMETOLOGY METHOD 02/01/2025 7:59 PM EDT [facility] MCV 91.4 79.0 - 98.0 FL LAB HEMETOLOGY METHOD [facility] MCH 29.0 27.0 - 32.0 pcg LAB HEMETOLOGY METHOD 02/01/2025 7:59 PM [facility] MCHC 31.7(L) 32.0 - 37.0 g/dL LAB HEMETOLOGY METHOD 02/01/2025 7:59 PM [facility] RDW 13.4 11.0 - 15.0 % LAB HEMETOLOGY METHOD 02/01/2025 7:59 [facility] Platelets 231 130 - 400 K/mcL LAB HEMETOLOGY METHOD 02/01/2025 7:59 [facility] MPV 10.6 7.0 - 11.0 FL LAB HEMETOLOGY METHOD 02/01/2025 7:[facility] NRBC 0.0 <1.0 % LAB HEMETOLOGY METHOD 02/01/2025 7:59 [facility] NRBC Absolute 0.00 <0.10 K/mcL LAB HEMETOLOGY METHOD 02/01/2025 7:59 [facility] Neutrophils Relative 47.2 % LAB HEMETOLOGY METHOD 02/01/2025 7:59 [facility] Lymphocytes Relative 33.1 % LAB HEMETOLOGY METHOD 02/01/2025 7:59 PM EDT [facility] Monocytes Relative 11.5 % LAB HEMETOLOGY METHOD 02/01/2025 7:59 PM EDT [facility] Eosinophils Relative 6.0 % LAB HEMETOLOGY METHOD 02/01/2025 7:59 [facility] Basophils Relative 1.0 % LAB HEMETOLOGY METHOD 02/01/2025 7:59 PM EDT [facility] Immature Granulocytes Relative 1.2 % LAB HEMETOLOGY METHOD 02/01/2025 7:59 PM EDT [facility] Neutrophils Absolute 2.43 1.50 - 7.00 K/mcL LAB HEMETOLOGY METHOD 02/01/2025 7:59 [facility] Lymphocytes Absolute 1.70 1.00 - 5.00 K/mcL LAB HEMETOLOGY METHOD 02/01/2025 7:[facility] Monocytes Absolute 0.59 0.20 - 1.00 K/mcL LAB HEMETOLOGY METHOD 02/01/2025 7:59 PM EDT [facility] Eosinophils Absolute 0.31 0.00 - 0.50 K/mcL LAB HEMETOLOGY METHOD 02/01/2025 7:59 PM [facility] Basophils Absolute 0.05 0.00 - 0.20 K/mcL LAB HEMETOLOGY METHOD 02/01/2025 7:59 PM EDT [facility] Immature Granulocytes Absolute 0.06(H) 0.00 - 0.03 K/mcL LAB HEMETOLOGY METHOD 02/01/2025 7:59 PM [facility] Blood Venous blood specimen / Unknown Venipuncture / Unknown 02/01/2025 7:38 PM EDT 02/01/2025 7:46 PM EDT Dino Carbajal MD LAB BLOOD ORDERABLES Danuta l Result [facility] [address] [place] [address], * Lipase (02/01/2025 7:38 PM EDT) Only the most recent of2 resultswithin the time period is included. Lipase 41 13 - 75 unit/L LAB CHEMISTRY METHOD 02/01/2025 8:17 PM EDT [facility] Blood Venous blood specimen / Unknown Venipuncture / Unknown 02/01/2025 7:38 PM EDT 02/01/2025 7:46 PM EDT Lazaro Agosto MD LAB BLOOD ORDERABLES Final Resul t Performing Organization Address [facility] Co de Phone Number [facility] [address] [place] [address], * Comprehensive metabolic panel (02/01/2025 7:38 PM EDT) Only the most recent of2 resultswithin the time period is included. Sodium 135 133 - 145 mmol/L LAB CHEMISTRY METHOD 02/01/2025 8:18 PM [facility] Potassium 4.2 3.5 - 5.5 mmol/L LAB CHEMISTRY METHOD 02/01/2025 8:18 PM [facility] Chloride 100 96 - 110 mmol/L LAB CHEMISTRY METHOD 02/01/2025 8:18 PM T [facility] CO2 30 21 - 32 mmol/L LAB CHEMISTRY METHOD 02/01[facility]2025 8:[facility] Anion Gap 5 3 - 11 LAB CHEMISTRY METHOD 02/01/2025 8:18 PM [facility] Glucose 97 70 - 100 mg/dL LAB CHEMISTRY METHOD 02/01/2025 8:18 PM [facility] BUN 6 5 - 25 mg/dL LAB CHEMISTRY METHOD 02/01/2025 8:18 PM [facility] Creatinine 0.68 0.50 - 1.10 mg/dL LAB CHEMISTRY METHOD 02/01/2025 8:18 PM [facility] eGFR 127 >=60 mL/min/1. 73m2 LAB CHEMISTRY METHOD 02/01/2025 8:18 PM [facility] Comment:Calculation based on the Chronic Kidney Disease Epidemiology Collaboration (CKD-EPI) equation refit without adjustment for race. BUN/Creatinine Ratio 8.8 LAB CHEMISTRY METHOD 02/01/2025 8:18 PM [facility] Calcium 9.5 8.5 - 10.5 mg/dL LAB CHEMISTRY METHOD 02/01/2025 8:18 PM [facility] AST (SGOT) 23 10 - 42 unit/L LAB CHEMISTRY METHOD 02/01/2025 8:18 PM [facility] ALT (SGPT) 29 10 - 60 unit/L LAB CHEMISTRY METHOD 02/01/2025 8:18 PM [facility] Alkaline Phosphatase 59 42 - 121 unit/L LAB CHEMISTRY METHOD 02/01/2025 8:18 PM [facility] Total Protein 7.5 6.0 - 8.0 g/dL LAB CHEMISTRY METHOD 02/01/2025 8:18 PM [facility] Albumin 4.1 3.2 - 5.0 g/dL LAB CHEMISTRY METHOD 02/01/2025 8:18 PM [facility] Total Bilirubin 0.5 0.0 - 1.4 mg/dL LAB CHEMISTRY METHOD 02/01/2025 8:18 PM [facility] Blood Venous blood specimen / Unknown Venipuncture / Unknown 02/01/2025 7:38 PM EDT 02/01/2025 7:46 PM EDT Dino Carbajal MD LAB BLOOD ORDERABLES Danuta l Result Performing Organization Address [facility] Co de Phone Number [facility] [address] [place] [address], * (ABNORMAL) Magnesium (01/23/2025 5:26 PM EDT) Pathologist [facility] Magnesium 1.6(L) 1.9 - 2.6 mg/dL LAB CHEMISTRY METHOD 01/23/2025 6:17 PM EDT [facility] Blood Venous blood specimen / Unknown Venipuncture / Unknown 01/23/2025 5:26 PM EDT 01/23/2025 5:46 PM EDT Rich Sanchez MD LAB BLOOD ORDERABLES Final R esult Performing Organization Address [facility] de Phone Number [facility] [address] [place] [address], * (ABNORMAL) Ethanol (01/23/2025 5:26 PM EDT) [facility] Ethanol Level 116(H) 0 - 10 mg/dL LAB CHEMISTRY METHOD 01/23/2025 6:17 PM EDT [facility] Blood Venous blood specimen / Unknown Venipuncture / Unknown 01/23/2025 5:26 PM EDT 01/23/2025 5:46 PM EDT Rich Sanchez MD LAB BLOOD ORDERABLES Final R esult Performing Organization Address [facility] Co de Phone Number [facility] [address] [place] [address], [place] [phone] * POC , urine manually resulted (01/23/2025 5:19 PM EDT) HCG, Ur POC Negative Negative POC hCG Int QC Pass? Yes Yes Urine Urine specimen obtained by clean catch procedure / Unknown 01/23/2025 5:19 PM EDT Rich Sanchez MD POINT OF CARE TEST ENTER/BHAVESH T ORDERABLES Final Result * (ABNORMAL) Urinalysis with reflex microscopic (01/23/2025 5:16 PM EDT) Specific [place] Urine 1.023 1.003 - 1.030 LAB URINALYSIS - AUTOMATED METHOD 01/23/2025 5:59 PM EDT [facility] pH, Urine 6.5 5.0 - 8.0 pH LAB URINALYSIS - AUTOMATED METHOD 01/23/2025 5:59 PM [facility] Leukocytes, Urine Negative Negative LAB URINALYSIS - AUTOMATED METHOD 01/23/2025 5:59 PM [facility] Nitrite, Urine Negative Negative LAB URINALYSIS - AUTOMATED METHOD 01/23/2025 5:59 PM [facility] Protein, Urine Trace <=Trace mg/dL LAB URINALYSIS - AUTOMATED METHOD 01/23/2025 5:59 PM [facility] Glucose, Urine Negative Negative mg/dL LAB URINALYSIS - AUTOMATED METHOD 01/23/2025 5:59 PM [facility] Ketones, Urine Trace(A) Negative mg/dL LAB URINALYSIS - AUTOMATED METHOD 01/23/2025 5:59 PM [facility] Urobilinogen, Urine 1.0 0.2 - 1.0 mg/dL LAB URINALYSIS - AUTOMATED METHOD 01/23/2025 5:59 PM [facility] Bilirubin, Urine Negative Negative LAB URINALYSIS - AUTOMATED METHOD 01/23/2025 5:59 PM [facility] Blood, Urine Negative Negative LAB URINALYSIS - AUTOMATED METHOD 01/23/2025 5:59 PM [facility] Urine Urine specimen obtained by clean catch procedure / Unknown Non-blood Collection / Unknown 01/23/2025 5:16 PM EDT 01/23/2025 5:45 PM EDT us Rich Sanchez MD LAB URINE ORDERABLES Final R esult RADHA LEMUSFIELD GUTIERREZ ([facility]) [facility] [address] [place] [address], [place] [phone] from Last 3 Months Insurance [facility] [employer]AGE Care Teams Accountant Supervisor Relationship Specialty Start Date End Date Physician, No Pcp PCP - General 11/15/24
[2025-03-03 17:47] LABS: Hematocrit 39.6 % (37.0-47.0); Hemoglobin 13.1 g/dl (12.0-16.0); Imm Gran Abs Auto 0.01 X10*3/uL (0.00-0.03); Imm Gran Pct Auto 0.2 % (0.0-0.4); Lymphocytes Absolute Auto 1.7 X10*3/uL (1.2-4.9); Mean Corpuscular HGB Conc 33.1 g/dl (31.0-35.0); Mean Corpuscular Hemoglobin 28.4 pg (27.0-33.0); Mean Corpuscular Volume 85.9 fL (80.0-98.0); NRBC Abs Auto 0.000 X10*3/uL (0.0-0.012); NRBC Pct Auto 0.0 /100WBC (0.0-0.2); Platelet Count 208 X10*3/uL (160-400); Red Blood Count 4.61 X10*6/uL (4.20-5.50); White Blood Count 4.5 X10*3/uL (4.8-10.8)
[2025-03-03 17:49] LABS: Anion Gap 10 (12-20); Blood Urea Nitrogen 10 mg/dL (9-16); Calcium 9.0 mg/dL (8.4-10.2); Carbon Dioxide 25 mmol/L (22-29); Chloride 108 mmol/L (96-108); Creatinine Clr Calc Pharmacy 123.0; Estimated Glomerular Filt Rate > 60; Potassium 4.1 mmol/L (3.3-5.1); Sodium 139 mmol/L (135-145)
[2025-03-03 18:28] LABS: Erythrocyte Sedimentation Rate 8 MM/HR (0-20)
[2025-03-03 22:00] VITALS: BP 112/66; PULSE 67; RESP 18; TEMP 36.1; O2SAT 98
[2025-03-03 23:01] VITALS: BP 112/66; PULSE 67; RESP 18; TEMP 36.1; O2SAT 98
== END 2025-03-03 22:00 | disposition home or self-care (01) ==
PROVIDERS: Physician Assistant; Emergency Provider Emergency Medicine
DX: H60.91 Unspecified otitis externa, right ear (principal); H92.01 Otalgia, right ear
CPT/HCPCS: 36415; 70481; 80048; 85025; 85652; 86140; 99283; 99284

== ENCOUNTER → 2025-03-03 17:10 | Outpatient (BNV) | payer OTHER, SELFPAY | PROVIDERS: Visit Provider Radiology Diagnostic Radiology | DX: H73.91 Unspecified disorder of tympanic membrane, right ear (principal); H61.891 Other specified disorders of right external ear | CPT/HCPCS: 70481 ==

== ENCOUNTER 2025-03-10 21:46 | Emergency (ER) | payer OTHER, SELFPAY ==
--- OUTSIDE RECORDS SUMMARY | 2018-12-22 05:45 | XMS_ITS | Continuity of Care Document ---
Author Organization Formerly [facility] vices Address [address] [place] [address] Phone Care Team Providers Care Worm Packer Name Role Phone Fercho Lind RDH Unavailable Unavailable Allergies, Adverse Reactions, Alerts Substance Reaction Status Criticality banana Anaphylaxis Active No Information pineapple ItchingItching Active No Informatio n apple Anaphylaxis Active No Information carrot ItchingItching Active No Informatio n Medications Medication Instructions Dosage Effective Dates (start - stop) Status Comments MELATONIN (unknown strength) Not Available - Active HYDROXYZINE HCL (unknown strength) Not Available - Active Procedures Procedure Date MDE - Dental Screening For DCF 19 Caries Risk Assmt & Docmtn, With HighRis k Treatment Plan Not Started PURE TONE HEARING TEST, AIR VISUAL ACUITY SCREEN OFFICE/OUTPATIENT VISIT, NEW Advance Directives Directive Yes / No Effective Date File Name No Information Encounters Encounter Description Practice Location Reason(s) For Visit Diagnoses Date Provider Providers Copied on Encounter [facility], [address] [place] [address], [id number], [place] tel:[phone] [facility] Dental Problems related to other legal circumstancesRisk for dental caries, high 2-201 9 Diogo Brantley. [address] [facility], [id number] [address] [place] [address], [id number] , [place]. tel:[phone] OFFICE/OUTPA TIENT VISIT, NEW [facility], [address] [place], [address], [place] tel:[phone] [facility] Pediatrics MDE (chief complaint) Problems related to other legal circumstancesDieta ry counseling and surveillanceEncoun ter for exam of ears and hearing w/o abnormal findingsEncounter for exam of eyes and vision w/o abnormal findingsMild intermittent asthma without complicationMultip le allergiesMyopia of both eyesObesity (BMI 30.0-34.9) 9 Bills Kailee. [address], [id number] [address], [place], [address], [place]. tel:[phone] Family History Family Member Type Diagnosis Age At Onset No Information Payers Payer name Insurance type Covered green party ID Juan Carlos dominique(s) D Medicaid [id number] Social History Type Description Quantity Date Captured Comments Sex Female Smoking Status No Information Sexual Orientation Choose not to disclose Gender Identity Choose not to disclose 019 Chief Complaint And Reason For Visit No Information Reason For Referral Reason For Referral No Information Plan Of Treatment Date Type Action Status Goal Diet education completed History Of Present Illness Encounter Date Complaint History Of Prese nt Illness MDE She has mild int ermittent asthma on albuterol as needed. 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 She does not have an EpiPen.She has several behavioral health needs and is on atarax. She has had multiple psychiatric hospitalizations.She is sexually active. Last STD testing 1 month ago. She is interested in starting control.There are no other concerns at today's visit. Functional Status Date Functional Assessmen t No Information Instructions Date Instruction Additional Infor brianne -Schedule evaluation with eye doctor within 1 month Related to Myopia of both eyes -Obtain EpiPen RICH (within 2 weeks maximum) Related to Multiple allergies -Follow with primary care provider for routine well early childhood specialist, required immunizations and screenings, asthma and weight management within 1 month-Recommend dental evaluation every 6 months Related to Problems related to other legal circumstances Diet education Related to Dieta ry counseling and surveillance Exercise education Related to Di etary counseling and surveillance Assessments Type Assessment Date No Information Patient Care Teams Name Effective Dates (start - stop) Status Members No Information
--- OUTSIDE RECORDS SUMMARY | 2025-03-09 22:34 | XMS_ITS | Encounter Summary ---
Author Organization [facility] Address [address] [place] [address] Care Team Providers Care Website Programmer Name Role Phone Physician, No Pcp Primary Care Provider Unavaila ble Reason for Visit * Reason Comments Earache Ongoing right sided ear infection. Encounter Details Date Type Department Care Team (Late st Contact Info) Description 03/09/2025 10:34 PM EST - 03/09/2025 11:51 PM EST Emergency [facility] Emergency [address] [place] [id number] Discharge Disposition: Left Against Medical Advice Social History Tobacco Use Types Packs/Day Years Used Date Smoking Tobacco: Every Day Cigarettes Smokeless Tobacco: Never Alcohol Use Standard Drinks/Week Comments Not Currently 0 (1 standard drink = 0.6 oz pur e alcohol) Comments Unknown Sex and Gender Information Value Date Recorded Sex Assigned at Female 07/24/2024 2:56 PM EDT Legal Sex Female 3:36 AM EST Gender Identity Female 07/24/2024 2:56 PM EDT Sexual Orientation Choose not to disclose 2024 2:56 PM EDT documented as of this encounter Last Filed Vital Signs Vital Sign Reading Time Taken Comments Blood Pressure 119/82 03/09/2025 10:55 PM EST Pulse 61 03/09/2025 10:55 PM EST Temperature 37.3 C (99.1 F) 03/09/2025 10:55 PM EST Respiratory Rate 18 03/09/2025 10:55 PM EST Oxygen Saturation 100% 03/09/2025 10:55 PM EST Inhaled Oxygen Concentration - - Weight 81.6 kg (180 lb) 03/09/2025 10:55 PM EST Height 170.2 cm (5' 7 ) 03/09/2025 10:55 PM EST Body Mass Index 28.19 03/09/2025 10:55 PM EST documented in this encounter Functional Status * Are you deaf or do you have serious difficulty hearing? Answer Date of Assessment Author No 01/23/2025 5:22 PM Finn RN * Are you blind or do you have serious difficulty seeing, even when wearing glasses? Answer Date of Assessment Author No 01/23/2025 5:22 PM Finn RN * Do you have serious difficulty walking or climbing stairs? Answer Date of Assessment Author No 01/23/2025 5:22 PM Finn RN * Do you have serious difficulty dressing or bathing? Answer Date of Assessment Author No 01/23/2025 5:22 PM Finn RN * Because of a physical, mental, or emotional condition, do you have serious difficulty doing errandsalone such as visiting the doctor? Answer Date of Assessment Author No 01/23/2025 5:22 PM Finn RN * Calculated C-SSRS Risk Score (Lifetime/Recent) Answer Date of Assessment Author No Risk Indicated 03/09/2025 10:56 PM EST Doris Queen RN * [place] Suicide Severity Rating Scale (Screener/Recent Self-Report) Question Answer Date of Assessment Author 1. Wish to be (Past 1 Month) No 03/09/2025 10:56 PM Jermaine Rudolph RN documented as of this encounter Mental Status * Because of a physical, mental, or emotional condition, do you have serious difficulty concentrating, remembering, or making decisions? (5 years old or older) Answer Entry Date Author No 01/23/2025 5:22 PM Finn RN documented in this encounter Discharge Disposition Disposition Code Departure Means Destination Left Against Medical Advice documented in this encounter Progress Notes * Doris Canada RN - 03/09/2025 10:56 PM EST Pt has right ear infection for a few weeks, prescribed amoxicillin and pt took full course. Pt c/o ringing in the right ear and warmth. Denies fever/chills documented in this encounter Plan of Treatment Not on file documented as of this encounter Visit Diagnoses Not on filedocumented in this encounter Care Teams Website Programmer Relationship Specialty Start Date End Date Physician, No Pcp PCP - General 11/15/24 documented as of this encounter
[2025-03-10 21:52] VITALS: BP 121/76; PULSE 63; RESP 18; TEMP 36.1; O2SAT 100; BMI 28.2
--- NOTE | 2025-03-10 21:52 | ED_ITS ---
HPI - General Adult General Chief complaint: Ear Problems Stated complaint: teeth infection/ear pain/drug use Time Seen by Provider: 03/10/25 23:53 Related Data Previous Rx's ?Medication ?Instructions ?Recorded acetaminophen 500 mg tablet 500 mg PO Q6H PRN fever or pain 03/03/25 (Tylenol Extra Strength) #14 tabs ciprofloxacin 0.3 %-dexamethasone 4 drp otic (ear) rig ht Q12H 7 days 03/03/25 0.1 % ear drops,suspension #7.5 mL hydrocortisone 0.5 % topical cream 1 appl topical BID PRN rash #28.4 03/03/25 grams ibuprofen 600 mg tablet 600 mg PO Q8H PRN fever or p ain 03/03/25 #14 tabs ondansetron 4 mg disintegrating 4 mg PO Q8H PRN nausea and 03/03/25 tablet vomiting #10 tabs Allergies Allergy/AdvReac Type Severity Reaction Status Date / Time No Known Allergies (No Known Allergy Verified 03/10/25 21:55 Allergies*) [facility] Past Medical History Medical History No pertinent past medical history Social History Social History Smoked in Last 30 Days: Yes Substance Use Type: Heroin Advance Directives: No Do you have a plan to hurt others: No Plan Physical Exam ED Vital Signs: Vital Signs - 24 hr 03/10/25 21:52 Temperature 97.0 F Pulse Rate 63 Respiratory Rate 18 Blood Pressure 121/76 Pulse Oximetry 100 Oxygen Delivery Method Room Air BMI result Body Mass Index 28.2 Course Course Course Narrative: Medical screening exam performed. Please refer to detailed history, exam, evaluation, and management by primary provider. 19-year-old female, polysubstance use, persistent right ear pain and drainage with reported multiple emergency department visits. Patient last seen on March 03. Reports compliance with medications accept Augmentin. Admits to fentanyl use with her last use just prior to arrival. Positive tinnitus. No ENT follow up. No visualized drainage from right ear noted. Check labs. JS Medical Decision Making Lab Data 03/10/25 22:04 03/10/25 22:04 Labs: Lab Results 03/10/25 Range/Units 22:04 WBC 4.2 L (4.8-10.8) X10*3/uL RBC 4.51 (4.20-5.50) X10*6/uL Hgb 12.9 (12.0-16.0) g/dl Hct 39.1 (37.0-47.0) % MCV 86.7 (80.0-98.0) fL MCH 28.6 (27.0-33.0) pg MCHC 33.0 (31.0-35.0) g/dl RDW 13.2 (11.0-16.0) % Plt Count 210 (160-400) X10*3/uL MPV 11.4 (9.4-12.3) fL Immature Gran % (Auto) 0.2 (0.0-0.4) % Neut % (Auto) 32.3 L (45-73) % Lymph % (Auto) 46.1 H (20-40) % [place] % (Auto) 10.0 (2-11) % Eos % (Auto) 10.9 H (0-4) % Baso % (Auto) 0.5 (0-2) % Lymph # (Auto) 1.9 (1.2-4.9) X10*3/uL [place] # (Auto) 0.4 (0.1-1.2) X10*3/uL Eos # (Auto) 0.5 H (0.0-0.4) X10*3/uL Baso # (Auto) 0.0 (0.0-0.2) X10*3/uL Abs Immat Gran (auto) 0.01 (0.00-0.03) X10*3/uL Absolute Neuts (auto) 1.4 L (2.0-8.3) x10*3/uL Absolute Nucleated RBC 0.000 (0.0-0.012) X10*3/uL Nucleated RBC % (auto) 0.0 (0.0-0.2) /100WBC Sodium 142 (135-145) mmol/L Potassium 3.7 (3.3-5.1) mmol/L Chloride 109 H (96-108) mmol/L Carbon Dioxide 23 (22-29) mmol/L Anion Gap 14 (12-20) BUN 8 L (9-16) mg/dL Creatinine 0.75 (0.5-1.4) mg/dL Estim Creat Clear Calc 130.4 Estimated GFR > 60 Random Glucose 70 (60-115) mg/dL Calcium 9.1 (8.4-10.2) mg/dL Beta HCG, Quant < 2 mIU/mL Discharge Plan Discharge Clinical Impression: Chronic right ear pain Patient Disposition: Left W/O Completing Treatment Prescriptions: No Action acetaminophen [Tylenol Extra Strength] 500 mg tablet 500 mg PO Q6H PRN (Reason: fever or pain) Qty: 14 0RF ibuprofen 600 mg tablet 600 mg PO Q8H PRN (Reason: fever or pain) Qty: 14 0RF ondansetron 4 mg tablet,disintegrating 4 mg PO Q8H PRN (Reason: nausea and vomiting) Qty: 10 0RF hydrocortisone 0.5 % cream 1 appl topical BID PRN (Reason: rash) Qty: 28.4 0RF ciprofloxacin-dexamethasone 0.3-0.1 % drops,suspension 4 drp otic (ear) right Q12H 7 Days Qty: 7.5 0RF Discharge Date/Time: 03/10/25 23:54
[2025-03-10 22:09] LABS: MANUAL DIFF FLAG NO
[2025-03-10 22:11] LABS: Hematocrit 39.1 % (37.0-47.0); Hemoglobin 12.9 g/dl (12.0-16.0); Imm Gran Abs Auto 0.01 X10*3/uL (0.00-0.03); Imm Gran Pct Auto 0.2 % (0.0-0.4); Lymphocytes Absolute Auto 1.9 X10*3/uL (1.2-4.9); Mean Corpuscular HGB Conc 33.0 g/dl (31.0-35.0); Mean Corpuscular Hemoglobin 28.6 pg (27.0-33.0); Mean Corpuscular Volume 86.7 fL (80.0-98.0); NRBC Abs Auto 0.000 X10*3/uL (0.0-0.012); NRBC Pct Auto 0.0 /100WBC (0.0-0.2); Platelet Count 210 X10*3/uL (160-400); Red Blood Count 4.51 X10*6/uL (4.20-5.50); White Blood Count 4.2 X10*3/uL (4.8-10.8)
[2025-03-10 22:23] LABS: Anion Gap 14 (12-20); Blood Urea Nitrogen 8 mg/dL (9-16); Calcium 9.1 mg/dL (8.4-10.2); Carbon Dioxide 23 mmol/L (22-29); Chloride 109 mmol/L (96-108); Creatinine Clr Calc Pharmacy 130.4; Estimated Glomerular Filt Rate > 60; Potassium 3.7 mmol/L (3.3-5.1); Sodium 142 mmol/L (135-145)
--- OUTSIDE RECORDS SUMMARY | 2025-03-10 23:46 | XMS_ITS | Clinical Summary ---
Author Organization [facility] Address [address] [place] [address] Phone Care Team Providers Care Latin American Studies Director Name Role Phone Physician, No Pcp Primary Care Provider Unavaila ble Allergies No known active allergies Medications hydrOXYzine HCL (ATARAX) 25 mg tablet Take 2 tablets (50 mg total) by mouth every 6 (six) hours for 3 days. 24 each 5 Active ciprofloxacin (CIPRO) 500 mg tablet Take 1 [...] Encounters Date Type Department Care Team Description 03/09/2025 10:34 PM EST - 03/09/2025 11:51 PM EST [facility] Emergency [address] [place] [id number] Discharge Disposition: Left Against Medical Advice 02/22/2025 2:56 PM EDT - 02/22/2025 6:24 PM EDT [facility] Emergency [address] [place] [address] Meche Horn MD Discharge Disposition: Left Against Medical Advice 02/01/2025 7:47 PM EDT - 02/01/2025 8:55 PM EDT [facility] Emergency [address] [place] [address] Lazaro Agosto MD Perichondritis of auricle, right (Primary Dx); Dyspepsia; Exposure to herpes Discharge Disposition: Home or Self Care 01/23/2025 5:05 PM EDT - 01/23/2025 7:08 PM EDT [facility] Emergency [address] [place] [address] Rich Sanchez MD Nausea and vomiting, unspecified vomiting type (Primary Dx); Alcoholic intoxication without complication ([facility] V[facility]); Hypokalemia; Hypomagnesemia; Alcohol abuse Discharge Disposition: Home or Self Care 01/19/2025 7:28 PM EDT - 01/19/2025 7:55 PM EDT Emergency [facility] Emergency [address] [place] [address] Panic attack as reaction to stress (Primary Dx); Homeless Discharge Disposition: Home or Self Care from Last 3 Months Surgical History Surgery Date Site/Laterality Comments OTHER SURGICAL HISTORY PROCEDURE: DENIES PREVIOUS SURGERY Medical History Medical History Date Comments Asthma DX:Asthma Strep throat 05/30/12 DX:Strep throat Wrist fracture, left 08/21/2013 DX:Wrist fr acture, left; COMMENT: [facility] Family History Medical History Relation Name Comments [...] Mass Index 28.19 03/09/2025 10:55 PM EST Plan of Treatment Health Maintenance Due Date [...] and culture (02/01/2025 8:13 PM EDT) Pathologist [facility] Specific Daniel Urine 1.027 1.003 - 1.030 LAB URINALYSIS - AUTOMATED METHOD 02/01/2025 9:05 PM [facility] pH, Urine 6.0 5.0 - 8.0 pH LAB URINALYSIS - AUTOMATED METHOD 02/01/2025 9:05 PM [facility] Leukocytes, Urine Small(A) Negative LAB URINALYSIS - AUTOMATED METHOD 02/01/2025 9:05 PM [facility] Nitrite, Urine Negative Negative LAB URINALYSIS - AUTOMATED METHOD 02/01/2025 9:05 PM [facility] Protein, Urine 30(A) <=Trace mg/dL LAB URINALYSIS - AUTOMATED METHOD 02/01/2025 9:05 PM [facility] Glucose, Urine Negative Negative mg/dL LAB URINALYSIS - AUTOMATED METHOD 02/01/2025 9:05 PM [facility] Ketones, Urine Trace(A) Negative mg/dL LAB URINALYSIS - AUTOMATED METHOD 02/01/2025 9:05 PM [facility] Urobilinogen, Urine 1.0 0.2 - 1.0 mg/dL LAB URINALYSIS - AUTOMATED METHOD 02/01/2025 9:05 PM [facility] Bilirubin, Urine Negative Negative LAB URINALYSIS - AUTOMATED METHOD 02/01/2025 9:05 PM [facility] Blood, Urine Negative Negative LAB URINALYSIS - AUTOMATED METHOD 02/01/2025 9:05 PM [facility] RBC, Urine 5.9(H) 0 - 4 /HPF LAB URINALYSIS - AUTOMATED METHOD 02/01/2025 9:05 PM [facility] WBC, Urine 22.1(H) 0 - 4 /HPF LAB URINALYSIS - AUTOMATED METHOD 02/01/2025 9:05 PM [facility] Squamous Epithelial, Urine 82(H) 0 - 60 /LPF LAB URINALYSIS - AUTOMATED METHOD 02/01/2025 9:05 PM [facility] Bacteria, Urine Few(A) Negative /HPF LAB URINALYSIS - AUTOMATED METHOD 02/01/2025 9:05 PM [facility] Hyaline Casts, Urine 4.8(H) 0 - 3 /LPF LAB URINALYSIS - AUTOMATED METHOD 02/01/2025 9:05 PM [facility] Urine Urine specimen obtained by clean catch procedure / Unknown Non-blood Collection / Unknown 02/01/2025 8:13 PM EDT 02/01/2025 8:36 PM EDT us Dino Carbajal MD LAB URINE ORDERABLES Danuta charlette Result [facility] [address] [place] [address], * Bain urine culture tube (02/01/2025 8:13 PM EDT) Pathologist [facility] Extra Tube Hold for add-ons. 02/01/2025 10:02 PM EDT [facility] Comment:Auto resulted. Urine Urine specimen obtained by clean catch procedure / Unknown Non-blood Collection / Unknown 02/01/2025 8:13 PM EDT 02/01/2025 8:36 PM EDT Dino Carbajal MD LAB URINE ORDERABLES Danuta l Result Performing Organization Address City/[facility]/ZIP Co de Phone Number [facility] [address] [place] [address], [place] [phone] * Culture urine (02/01/2025 8:13 PM EDT) [facility] Culture, Urine >100,000 CFU/mL Mixed bacterial morphotypes present suggestive of possible contamination during collection. Suggest appropriate recollection if clinically indicated. 02/03/2025 12:39 PM EDT [facility] Urine Urine specimen obtained by clean catch procedure / Unknown Non-blood Collection / Unknown 02/01/2025 8:13 PM EDT 02/01/2025 9:04 PM EDT Dino Carbajal MD LAB MICROBIOLOGY - GENERA L ORDERABLES Final Result Performing Organization Address City/[facility]/ZIP Co de Phone Number [facility] [address] [place] [address], [place] [phone] * (ABNORMAL) CBC auto differential (02/01/2025 7:38 PM EDT) Only the most recent of2 resultswithin the time period is included. Pathologist [facility] WBC 5.1 4.8 - 10.8 K/[facility] LAB HEMETOLOGY METHOD 02/01/2025 7:59 PM EDT [facility] RBC 4.90(H) 3.80 - 4.80 M/mcL LAB HEMETOLOGY METHOD 02/01/2025 7:59 PM EDT [facility] Hemoglobin 14.2 11.5 - 16.0 g/dL LAB HEMETOLOGY METHOD 02/01/2025 7:59 PM EDT [facility] Hematocrit 44.8 35.0 - 47.0 % LAB HEMETOLOGY METHOD 02/01/2025 7:59 PM EDT [facility] MCV 91.4 79.0 - 98.0 FL LAB HEMETOLOGY METHOD [facility]25 [facility] MCH 29.0 27.0 - 32.0 pcg LAB HEMETOLOGY METHOD 02/01/2025 7:59 PM [facility] MCHC 31.7(L) 32.0 - 37.0 g/dL LAB HEMETOLOGY METHOD 02/01/2025 7:59 PM [facility] RDW 13.4 11.0 - 15.0 % LAB HEMETOLOGY METHOD 02/01/2025 7:59 [facility] Platelets 231 130 - 400 K/mcL LAB HEMETOLOGY METHOD 02/01/2025 7:59 [facility] MPV 10.6 7.0 - 11.0 FL LAB HEMETOLOGY METHOD 02/01/2025 7:59 [facility] NRBC 0.0 <1.0 % LAB HEMETOLOGY METHOD 02/01/2025 7:59 [facility] NRBC Absolute 0.00 <0.10 K/mcL LAB HEMETOLOGY METHOD 02/01/2025 7:59 [facility] Neutrophils Relative 47.2 % LAB HEMETOLOGY METHOD 02/01/2025 7:59 [facility] Lymphocytes Relative 33.1 % LAB HEMETOLOGY METHOD 02/01/2025 7:59 PM EDT [facility] Monocytes Relative 11.5 % LAB HEMETOLOGY METHOD 02/01/2025 7:59 PM EDT [facility] Eosinophils Relative 6.0 % LAB HEMETOLOGY METHOD 02/01/2025 7:59 [facility] Basophils Relative 1.0 % LAB HEMETOLOGY METHOD 02/01/2025 7:59 PM EDT [facility] Immature Granulocytes Relative 1.2 % LAB HEMETOLOGY METHOD 02/01/2025 7:59 PM EDT [facility] Neutrophils Absolute 2.43 1.50 - 7.00 K/mcL LAB HEMETOLOGY METHOD 02/01/2025 7[facility] Lymphocytes Absolute 1.70 1.00 - 5.00 K/mcL LAB HEMETOLOGY METHOD 02/01/2025 7:59 [facility] Monocytes Absolute 0.59 0.20 - 1.00 K/mcL LAB HEMETOLOGY METHOD 02/01/2025 7:59 PM EDT [facility] Eosinophils Absolute 0.31 0.00 - 0.50 K/mcL LAB HEMETOLOGY METHOD 02/01/2025 7:59 PM [facility] Basophils Absolute 0.05 0.00 - 0.20 K/mcL LAB HEMETOLOGY METHOD 02/01/2025 7:59 PM EDT [facility] Immature Granulocytes Absolute 0.06(H) 0.00 - 0.03 K/mcL LAB HEMETOLOGY METHOD 02/01/2025 7:59 PM [facility] Blood Venous blood specimen / Unknown Venipuncture / Unknown 02/01/2025 7:38 PM EDT 02/01/2025 7:46 PM EDT Dino Carbajal MD LAB BLOOD ORDERABLES Danuta l Result [facility] [address] [place] [address], * Lipase (02/01/2025 7:38 PM EDT) Only the most recent of2 resultswithin the time period is included. Lipase 41 13 - 75 unit/L LAB CHEMISTRY METHOD 02/01/2025 8:17 PM EDT [facility] Blood Venous blood specimen / Unknown Venipuncture / Unknown 02/01/2025 7:38 PM EDT 02/01/2025 7:46 PM EDT Lazaro Agosto MD LAB BLOOD ORDERABLES Final Resul t Performing Organization Address [facility] Co de Phone Number [facility] [address] [place] [address], * Comprehensive metabolic panel (02/01/2025 7:38 PM EDT) Only the most recent of2 resultswithin the time period is included. Sodium 135 133 - 145 mmol/L LAB CHEMISTRY METHOD 02/01/2025 8:18 PM [facility] Potassium 4.2 3.5 - 5.5 mmol/L LAB CHEMISTRY METHOD 02/01/2025 8:18 PM [facility] Chloride 100 96 - 110 mmol/L LAB CHEMISTRY METHOD 02/01/2025 8:18 PM T [facility] CO2 30 21 - 32 mmol/L LAB CHEMISTRY METHOD 02/01/2025 8:[facility] Anion Gap 5 3 - 11 LAB CHEMISTRY METHOD 02/01/2025 8:18 PM [facility] Glucose 97 70 - 100 mg/dL LAB CHEMISTRY METHOD 02/01/2025 8:18 PM [facility] BUN 6 5 - 25 mg/dL LAB CHEMISTRY METHOD 02/01/2025 8:18 PM [facility] Creatinine 0.68 0.50 - 1.10 mg/dL LAB CHEMISTRY METHOD 02/01/2025 8:18 PM [facility] eGFR 127 >=60 mL/min/1. 73m2 LAB CHEMISTRY METHOD 02/01/2025 8:18 PM [facility] Comment:Calculation based on the Chronic Kidney Disease Epidemiology Collaboration (CKD-EPI) equation refit without adjustment for race. BUN/Creatinine Ratio 8.8 LAB CHEMISTRY METHOD 02/01/2025 8:18 PM [facility] Calcium 9.5 8.5 - 10.5 mg/dL LAB CHEMISTRY METHOD 02/01/2025 8:18 PM [facility] AST (SGOT) 23 10 - 42 unit/L LAB CHEMISTRY METHOD 02/01/2025 8:18 PM [facility] ALT (SGPT) 29 10 - 60 unit/L LAB CHEMISTRY METHOD 02/01/2025 8:18 PM [facility] Alkaline Phosphatase 59 42 - 121 unit/L LAB CHEMISTRY METHOD 02/01/2025 8:18 PM [facility] Total Protein 7.5 6.0 - 8.0 g/dL LAB CHEMISTRY METHOD 02/01/2025 8:18 PM [facility] Albumin 4.1 3.2 - 5.0 g/dL LAB CHEMISTRY METHOD 02/01/2025 8:18 PM [facility] Total Bilirubin 0.5 0.0 - 1.4 mg/dL LAB CHEMISTRY METHOD 02/01/2025 8:18 PM [facility] Blood Venous blood specimen / Unknown Venipuncture / Unknown 02/01/2025 7:38 PM EDT 02/01/2025 7:46 PM EDT Dino Carbajal MD LAB BLOOD ORDERABLES Danuta l Result Performing Organization Address [facility] Co de Phone Number [facility] [address] [place] [address], * (ABNORMAL) Magnesium (01/23/2025 5:26 PM EDT) Pathologist [facility] Magnesium 1.6(L) 1.9 - 2.6 mg/dL LAB CHEMISTRY METHOD 01/23/2025 6:17 PM EDT [facility] Blood Venous blood specimen / Unknown Venipuncture / Unknown 01/23/2025 5:26 PM EDT 01/23/2025 5:46 PM EDT Rich Sanchez MD LAB BLOOD ORDERABLES Final R esult Performing Organization Address [facility] de Phone Number [facility] [address] [place] [address], * (ABNORMAL) Ethanol (01/23/2025 5:26 PM EDT) [facility] Ethanol Level 116(H) 0 - 10 mg/dL LAB CHEMISTRY METHOD 01/23/2025 6:17 PM EDT [facility] Blood Venous blood specimen / Unknown Venipuncture / Unknown 01/23/2025 5:26 PM EDT 01/23/2025 5:46 PM EDT Rich Sanchez MD LAB BLOOD ORDERABLES Final R esult Performing Organization Address [facility] Co de Phone Number [facility] [address] [place] [address], [place] [phone] * POC , urine manually resulted (01/23/2025 5:19 PM EDT) HCG, Ur POC Negative Negative POC hCG Int QC Pass? Yes Yes Urine Urine specimen obtained by clean catch procedure / Unknown 01/23/2025 5:19 PM EDT Rich Sanchez MD POINT OF CARE TEST ENTER/BHAVESH T ORDERABLES Final Result * (ABNORMAL) Urinalysis with reflex microscopic (01/23/2025 5:16 PM EDT) Specific Daniel Urine 1.023 1.003 - 1.030 LAB URINALYSIS - AUTOMATED METHOD 01/23/2025 5:59 PM EDT [facility] pH, Urine 6.5 5.0 - 8.0 pH LAB URINALYSIS - AUTOMATED METHOD 01/23/2025 5:59 PM [facility] Leukocytes, Urine Negative Negative LAB URINALYSIS - AUTOMATED METHOD 01/23/2025 5:59 PM [facility] Nitrite, Urine Negative Negative LAB URINALYSIS - AUTOMATED METHOD 01/23/2025 5:59 PM [facility] Protein, Urine Trace <=Trace mg/dL LAB URINALYSIS - AUTOMATED METHOD 01/23/2025 5:59 PM [facility] Glucose, Urine Negative Negative mg/dL LAB URINALYSIS - AUTOMATED METHOD 01/23/2025 5:59 PM [facility] Ketones, Urine Trace(A) Negative mg/dL LAB URINALYSIS - AUTOMATED METHOD 01/23/2025 5:59 PM [facility] Urobilinogen, Urine 1.0 0.2 - 1.0 mg/dL LAB URINALYSIS - AUTOMATED METHOD 01/23/2025 5:59 PM [facility] Bilirubin, Urine Negative Negative LAB URINALYSIS - AUTOMATED METHOD 01/23/2025 5:59 PM [facility] Blood, Urine Negative Negative LAB URINALYSIS - AUTOMATED METHOD 01/23/2025 5:59 PM [facility] Urine Urine specimen obtained by clean catch procedure / Unknown Non-blood Collection / Unknown 01/23/2025 5:16 PM EDT 01/23/2025 5:45 PM EDT us Rich Sanchez MD LAB URINE ORDERABLES Final R esult RADHA LEMUSFIELD GUTIERREZ ([facility]) [facility] [address] [place] [address], [place] [phone] from Last 3 Months Insurance [facility] MEDICAID ADVANTAGE Care Teams Latin American Studies Director Relationship Specialty Start Date End Date Physician, No Pcp PCP - General 11/15/24
== END 2025-03-10 23:54 | disposition left against medical advice (07) ==
PROVIDERS: Physician Assistant; Emergency Provider Emergency Medicine
DX: H92.01 Otalgia, right ear (principal); G89.29 Other chronic pain; Z53.29 Procedure and treatment not carried out because of patient's decision for other reasons
CPT/HCPCS: 36415; 80048; 84702; 85025; 99283

== ENCOUNTER 2025-04-05 22:08 | Emergency (ER) | payer OTHER, SELFPAY ==
--- OUTSIDE RECORDS SUMMARY | 2018-12-22 05:45 | XMS_ITS | Continuity of Care Document ---
Author Organization [facility] vices Address [address] [place] [address] Phone Care Team Providers Care Medical Sales Representative Name Role Phone Fercho Lind RDH Unavailable [...] Providers Copied on Encounter [facility], [address] [place] [address], [address], [place] tel:[phone] [facility] Dental Problems related to other legal circumstancesRisk for dental caries, high 2-201 9 Diogo Brantley. 500 [facility], [id number] [address] [place] [address], [id number] , [place]. tel:[phone] OFFICE/OUTPA TIENT VISIT, NEW [facility], [address] [place], [address], [place] tel:[phone] [facility] Pediatrics MDE (chief complaint) Problems related to other legal circumstancesDieta ry counseling and surveillanceEncoun ter for exam of ears and hearing w/o abnormal findingsEncounter for exam of eyes and vision w/o abnormal findingsMild intermittent asthma without complicationMultip le allergiesMyopia of both eyesObesity (BMI 30.0-34.9) 9 Bills Kailee. [address], [id number] [address], [place], [address], [place]. tel:[phone] Family History Family Member Type Diagnosis Age At Onset No Information Payers Payer name Insurance type Covered alliance party ID Juan Carlos dominique(s) D Medicaid [id number] Social History Type Description Quantity Date Captured [...] Information Instructions Date Instruction Additional Infor brianne -Obtain EpiPen RICH (within 2 weeks maximum) Related to Multiple allergies -Schedule evaluation with eye doctor within 1 month Related to Myopia of both eyes -Follow with primary care provider for routine well early childhood associate teacher, required immunizations and screenings, asthma and weight [...]
[2025-04-05 22:16] VITALS: BP 129/71; PULSE 69; RESP 18; TEMP 36.9; O2SAT 100; BMI 28.8
--- OUTSIDE RECORDS SUMMARY | 2025-04-05 22:42 | XMS_ITS | Clinical Summary ---
Author Organization [facility] Address [address] [place] [address] Phone Care Team Providers Care Repeater Chief Name Role Phone Physician, No Pcp Primary Care Provider Unavaila ble Allergies No known active allergies Medications hydrOXYzine HCL (ATARAX) 25 mg tablet Take 2 tablets (50 mg total) by mouth every 6 (six) hours for 3 days. 24 each 01/19/2025 Active Active Problems No known active problems Encounters Date Type Department Care Team Description 03/09/2025 10:34 PM EST - 03/09/2025 11:51 PM EST [facility] Emergency [address] [place] [phone] Discharge Disposition: Left Against Medical Advice 02/22/2025 2:56 PM EDT - 02/22/2025 6:24 PM EDT [facility] Emergency [address] [place] [phone] Meche Horn MD Discharge Disposition: Left Against Medical Advice 02/01/2025 7:47 PM EDT - 02/01/2025 8:55 PM EDT [facility] Emergency [address] [place] [phone] Lazaro Agosto MD Perichondritis of auricle, right (Primary Dx); Dyspepsia; Exposure to herpes Discharge Disposition: Home or Self Care 01/23/2025 5:05 PM EDT - 01/23/2025 7:08 PM EDT [facility] Emergency [address] [place] [phone] Rich Sanchez MD Nausea and vomiting, unspecified vomiting type (Primary Dx); Alcoholic intoxication without complication ([facility] V24); Hypokalemia; Hypomagnesemia; Alcohol abuse Discharge Disposition: Home or Self Care 01/19/2025 7:28 PM EDT - 01/19/2025 7:55 PM EDT Emergency [facility] Emergency [address] [place] [phone] Panic attack as reaction to stress (Primary Dx); Homeless Discharge Disposition: Home or Self Care from Last 3 Months Surgical History Surgery Date Site/Laterality Comments OTHER SURGICAL HISTORY PROCEDURE: DENIES PREVIOUS SURGERY Medical History Medical History Date Comments Asthma DX:Asthma Strep throat 05/30/12 DX:Strep throat Wrist fracture, left 08/21/2013 DX:Wrist fr acture, left; COMMENT: [facility] Family History Medical History Relation Name Comments [...] Completed 01/20/2008, 08/22/2004 HPV Vaccines Completed 11/14/2015, 03/11/2015, 04/22/2015 HIV Screening Completed 10/10/2018 Hepatitis C [...] and culture (02/01/2025 8:13 PM EDT) Specific [place] Urine 1.027 1.003 - 1.030 LAB URINALYSIS - AUTOMATED METHOD 02/01/2025 9:05 PM [facility] pH, Urine 6.0 5.0 - 8.0 pH LAB URINALYSIS - AUTOMATED METHOD 02/01/2025 9:05 PM [facility] Leukocytes, Urine Small(A) Negative LAB URINALYSIS - AUTOMATED METHOD 02/01/2025 9:05 PM [facility] Nitrite, Urine Negative Negative LAB URINALYSIS - AUTOMATED METHOD 02/01/2025 9:05 PM [facility] Protein, Urine 30(A) <=Trace mg/dL LAB URINALYSIS - AUTOMATED METHOD 02/01/2025 9:05 PM [facility] Glucose, Urine Negative Negative mg/dL LAB URINALYSIS - AUTOMATED METHOD 02/01/2025 9:05 PM [facility] Ketones, Urine Trace(A) Negative mg/dL LAB URINALYSIS - AUTOMATED METHOD 02/01/2025 9:05 PM [facility] Urobilinogen, Urine 1.0 0.2 - 1.0 mg/dL LAB URINALYSIS - AUTOMATED METHOD 02/01/2025 9:05 PM [facility] Bilirubin, Urine Negative Negative LAB URINALYSIS - AUTOMATED METHOD 02/01/2025 9:05 PM [facility] Blood, Urine Negative Negative LAB URINALYSIS - AUTOMATED METHOD 02/01/2025 9:05 PM EDT [facility] RBC, Urine 5.9(H) 0 - 4 /HPF LAB URINALYSIS - AUTOMATED METHOD 02/01/2025 9:05 PM EDT [facility] WBC, Urine 22.1(H) 0 - 4 /HPF LAB URINALYSIS - AUTOMATED METHOD 02/01/2025 9:05 PM [facility] Squamous Epithelial, Urine 82(H) 0 - 60 /LPF LAB URINALYSIS - AUTOMATED METHOD 02/01/2025 9:05 PM [facility] Bacteria, Urine Few(A) Negative /HPF LAB URINALYSIS - AUTOMATED METHOD 02/01/2025 9:05 PM [facility] Hyaline Casts, Urine 4.8(H) 0 - 3 /LPF LAB URINALYSIS - AUTOMATED METHOD 02/01/2025 9:05 PM [facility] Urine Urine specimen obtained by clean catch procedure / Unknown Non-blood Collection / Unknown 02/01/2025 8:13 PM EDT 02/01/2025 8:36 PM EDT us Dino Carbajal MD LAB URINE ORDERABLES Danuta l Result [facility] [address] [place] [address], [place] [phone] * Bain urine culture tube (02/01/2025 8:13 PM EDT) Extra Tube Hold for add-ons. 02/01/2025 10:02 PM EDT [facility] Comment:Auto resulted. Urine Urine specimen obtained by clean catch procedure / Unknown Non-blood Collection / Unknown 02/01/2025 8:13 PM EDT 02/01/2025 8:36 PM EDT us Dino Carbajal MD LAB URINE ORDERABLES Danuta l Result [facility] [address] [place] [address], [place] [phone] * Culture urine (02/01/2025 8:13 PM EDT) [facility] Culture, Urine >100,000 CFU/mL Mixed bacterial morphotypes present suggestive of possible contamination during collection. Suggest appropriate recollection if clinically indicated. 02/03/2025 12:39 PM EDT [facility] Urine Urine specimen obtained by clean catch procedure / Unknown Non-blood Collection / Unknown 02/01/2025 8:13 PM EDT 02/01/2025 9:04 PM EDT Dino Carbajal MD LAB MICROBIOLOGY - GENERA L ORDERABLES Final Result Performing Organization Address [facility] Co de Phone Number [facility] [address] [place] [address], [place] [phone] * (ABNORMAL) CBC auto differential (02/01/2025 7:38 PM EDT) Only the most recent of2 resultswithin the time period is included. [facility] WBC 5.1 4.8 - 10.8 K/mcL LAB HEMETOLOGY METHOD 02/01/2025 7:59 PM EDT [facility] RBC 4.90(H) 3.80 - 4.80 M/mcL LAB HEMETOLOGY METHOD 02/01/2025 7:59 PM EDT [facility] Hemoglobin 14.2 11.5 - 16.0 g/dL LAB HEMETOLOGY METHOD 02/01/2025 7:59 PM EDT [facility] Hematocrit 44.8 35.0 - 47.0 % LAB HEMETOLOGY METHOD 02/01/2025 7:59 PM EDT [facility] MCV 91.4 79.0 - 98.0 FL LAB HEMETOLOGY METHOD 02/01/2025 7:59 PM [facility] MCH 29.0 27.0 - 32.0 pcg LAB HEMETOLOGY METHOD 02/01/2025 7:59 PM [facility] MCHC 31.7(L) 32.0 - 37.0 g/dL LAB HEMETOLOGY METHOD 02/01/2025 7:59 PM [facility] RDW 13.4 11.0 - 15.0 % LAB HEMETOLOGY METHOD 02/01/2025 7:59 PM [facility] Platelets 231 130 - 400 K/mcL LAB HEMETOLOGY METHOD 02/01/2025 7:59 PM [facility] MPV 10.6 7.0 - 11.0 FL LAB HEMETOLOGY METHOD 02/01/2025 7:59 PM [facility] NRBC 0.0 <1.0 % LAB HEMETOLOGY METHOD 02/01/2025 7:59 PM [facility] NRBC Absolute 0.00 <0.10 K/mcL LAB HEMETOLOGY METHOD 02/01/2025 7:59 PM [facility] Neutrophils Relative 47.2 % LAB HEMETOLOGY METHOD 02/01/2025 7:59 PM [facility] Lymphocytes Relative 33.1 % LAB HEMETOLOGY METHOD 02/01/2025 7:59 PM [facility] Monocytes Relative 11.5 % LAB HEMETOLOGY METHOD 02/01/2025 7:59 PM [facility] Eosinophils Relative 6.0 % LAB HEMETOLOGY METHOD 02/01/2025 7:59 PM [facility] Basophils Relative 1.0 % LAB HEMETOLOGY METHOD 02/01/2025 7:59 PM [facility] Immature Granulocytes Relative 1.2 % LAB HEMETOLOGY METHOD 02/01/2025 7:59 PM EDT [facility] Neutrophils Absolute 2.43 1.50 - 7.00 K/mcL LAB HEMETOLOGY METHOD 02/01/2025 7:59 PM EDT [facility] Lymphocytes Absolute 1.70 1.00 - 5.00 K/mcL LAB HEMETOLOGY METHOD 02/01/2025 7:59 PM EDT [facility] Monocytes Absolute 0.59 0.20 - 1.00 K/mcL LAB HEMETOLOGY METHOD 02/01/2025 7:59 PM EDT [facility] Eosinophils Absolute 0.31 0.00 - 0.50 K/mcL LAB HEMETOLOGY METHOD 02/01/2025 7:59 PM EDT [facility] Basophils Absolute 0.05 0.00 - 0.20 K/mcL LAB HEMETOLOGY METHOD 02/01/2025 7:59 PM EDT [facility] Immature Granulocytes Absolute 0.06(H) 0.00 - 0.03 K/mcL LAB HEMETOLOGY METHOD 02/01/2025 7:59 PM EDT [facility] Blood Venous blood specimen / Unknown Venipuncture / Unknown 02/01/2025 7:38 PM EDT 02/01/2025 7:46 PM EDT us Dino Carbajal MD LAB BLOOD ORDERABLES Danuta l Result [facility] [address] [place] [address], * Lipase (02/01/2025 7:38 PM EDT) Only the most recent of2 resultswithin the time period is included. Lipase 41 13 - 75 unit/L LAB CHEMISTRY METHOD 02/01/2025 8:17 PM EDT [facility] Blood Venous blood specimen / Unknown Venipuncture / Unknown 02/01/2025 7:38 PM EDT 02/01/2025 7:46 PM EDT us Lazaro Agosto MD LAB BLOOD ORDERABLES Final Resul t [facility] [address] [place] [address], [place] [phone] * Comprehensive metabolic panel (02/01/2025 7:38 PM EDT) Only the most recent of2 resultswithin the time period is included. Sodium 135 133 - 145 mmol/L LAB [facility] Potassium 4.2 3.5 - 5.5 mmol/L LAB CHEMISTRY METHOD 02/01/2025 8:18 PM [facility] Chloride 100 96 - 110 mmol/L LAB CHEMISTRY METHOD 02/01/2025 8:18 PM [facility] CO2 30 21 - 32 mmol/L LAB CHEMISTRY METHOD 02/01/2025 8:18 PM [facility] Anion Gap 5 3 - 11 LAB CHEMISTRY METHOD 02/01/2025 8:18 PM [facility] Glucose 97 70 - 100 mg/dL LAB CHEMISTRY METHOD 02/01/2025 8:18 PM [facility] BUN 6 5 - 25 mg/dL LAB CHEMISTRY METHOD 02/01/2025 8:18 PM [facility] Creatinine 0.68 0.50 - 1.10 mg/dL LAB CHEMISTRY METHOD 02/01/2025 8:18 PM [facility] eGFR 127 >=60 mL/min/1. 73m2 LAB CHEMISTRY METHOD 02/01/2025 8:18 PM [facility] Comment:Calculation based on the Chronic Kidney Disease Epidemiology Collaboration (CKD-EPI) equation refit without adjustment for race. BUN/Creatinine Ratio 8.8 LAB CHEMISTRY METHOD 02/01/2025 8:18 PM T [facility] Calcium 9.5 8.5 - 10.5 mg/dL LAB CHEMISTRY METHOD 02/01/2025 8:18 PM EDT [facility] AST (SGOT) 23 10 - 42 unit/L LAB CHEMISTRY METHOD [facility] ALT (SGPT) 29 10 - 60 unit/L LAB CHEMISTRY METHOD 02/01/2025 8:18 PM EDT [facility] Alkaline Phosphatase 59 42 - 121 unit/L LAB CHEMISTRY METHOD 02/01/2025 8:18 PM EDT [facility] Total Protein 7.5 6.0 - 8.0 g/dL LAB CHEMISTRY METHOD 02/01/2025 8:18 PM [facility] Albumin 4.1 3.2 - 5.0 g/dL LAB CHEMISTRY METHOD 02/01/2025 8:18 PM [facility] Total Bilirubin 0.5 0.0 - 1.4 mg/dL LAB CHEMISTRY METHOD 02/01/2025 8:18 PM T [facility] Blood Venous blood specimen / Unknown Venipuncture / Unknown 02/01/2025 7:38 PM EDT 02/01/2025 7:46 PM EDT us Dino Carbajal MD LAB BLOOD ORDERABLES Danuta l Result [facility] [address] [place] [address], * (ABNORMAL) Magnesium (01/23/2025 5:26 PM EDT) Magnesium 1.6(L) 1.9 - 2.6 mg/dL LAB CHEMISTRY METHOD 01/23/2025 6:17 PM EDT [facility] Blood Venous blood specimen / Unknown Venipuncture / Unknown 01/23/2025 5:26 PM EDT 01/23/2025 5:46 PM EDT Rich Sanchez MD LAB BLOOD ORDERABLES Final R esult [facility] [address] [place] [address], [place] [phone] * (ABNORMAL) Ethanol (01/23/2025 5:26 PM EDT) [facility] Ethanol Level 116(H) 0 - 10 mg/dL LAB CHEMISTRY METHOD 01/23/2025 6:17 PM EDT [facility] Blood Venous blood specimen / Unknown Venipuncture / Unknown 01/23/2025 5:26 PM EDT 01/23/2025 5:46 PM EDT Rich Sanchez MD LAB BLOOD ORDERABLES Final R esult [facility] [address] [place] [address], [place] [phone] * POC , urine manually resulted (01/23/2025 5:19 PM EDT) [facility] HCG, Ur POC Negative Negative POC hCG Int QC Pass? Yes Yes Urine Urine specimen obtained by clean catch procedure / Unknown 01/23/2025 5:19 PM EDT Rich Sanchez MD POINT OF CARE TEST ENTER/BHAVESH T ORDERABLES Final Result * (ABNORMAL) Urinalysis with reflex microscopic (01/23/2025 5:16 PM EDT) [facility] Specific [place] Urine 1.023 1.003 - 1.030 LAB URINALYSIS - AUTOMATED METHOD 01/23/2025 5:59 PM EDT [facility] pH, Urine 6.5 5.0 - 8.0 pH LAB URINALYSIS - AUTOMATED METHOD 01/23/2025 5:59 PM EDT [facility] Leukocytes, Urine Negative Negative LAB URINALYSIS - AUTOMATED METHOD 01/23/2025 5:59 PM EDT [facility] Nitrite, Urine Negative Negative LAB URINALYSIS - AUTOMATED METHOD 01/23/2025 5:59 PM EDT [facility] Protein, Urine Trace <=Trace mg/dL LAB URINALYSIS - AUTOMATED METHOD 01/23/2025 5:59 PM EDT [facility] Glucose, Urine Negative Negative mg/dL LAB URINALYSIS - AUTOMATED METHOD 01/23/2025 5:59 PM EDT [facility] Ketones, Urine Trace(A) Negative mg/dL LAB URINALYSIS - AUTOMATED METHOD 01/23/2025 5:59 PM EDT [facility] Urobilinogen, Urine 1.0 0.2 - 1.0 mg/dL LAB URINALYSIS - AUTOMATED METHOD 01/23/2025 5:59 PM EDT [facility] Bilirubin, Urine Negative Negative LAB URINALYSIS - AUTOMATED METHOD 01/23/2025 5:59 PM EDT [facility] Blood, Urine Negative Negative LAB URINALYSIS - AUTOMATED METHOD 01/23/2025 5:59 PM T [facility] Urine Urine specimen obtained by clean catch procedure / Unknown Non-blood Collection / Unknown 01/23/2025 5:16 PM EDT 01/23/2025 5:45 PM EDT us Rich Sanchez MD LAB URINE ORDERABLES Final R esult [facility] [address] [place] [address], [place] [phone] from Last 3 Months Insurance [employer] [address] [place] [address] Care Teams Repeater Chief Relationship Specialty Start Date End Date Physician, No Pcp PCP - General 11/15/24
== END 2025-04-06 00:07 | disposition left against medical advice (07) ==
PROVIDERS: Emergency Provider Emergency Medicine
DX: H92.01 Otalgia, right ear (principal); Z53.21 Procedure and treatment not carried out due to patient leaving prior to being seen by health care provider
CPT/HCPCS: 99281

== ENCOUNTER 2025-04-08 20:21 | Emergency (ER) | payer OTHER, SELFPAY ==
--- OUTSIDE RECORDS SUMMARY | 2018-12-22 05:45 | XMS_ITS | Continuity of Care Document ---
Author Organization [facility] vices Address [address] [place] [address] Phone Care Team Providers Care Rpg Programmer Analyst Name Role Phone Fercho Lind RDH Unavailable Unavailable Allergies, Adverse Reactions, Alerts Substance Reaction Status Criticality banana Anaphylaxis Active No Information pineapple ItchingItching Active No Informatio n apple Anaphylaxis Active No Information carrot ItchingItching Active No Informatio n Medications Medication Instructions Dosage Effective Dates (start - stop) Status Comments HYDROXYZINE HCL (unknown strength) Not Available - Active MELATONIN (unknown strength) Not Available - Active Procedures [...] Diagnoses Date Provider Providers Copied on Encounter [facility], [address] [place] [address], [id number], [place] tel:[phone] [facility] Dental Problems related to other legal circumstancesRisk for dental caries, high 2-201 [address] [facility], [id number] [address] [place] [address], [id number] , [place]. tel:[phone] OFFICE/OUTPA TIENT VISIT, NEW [facility], [address] [place], [address], [place] tel:[phone] [facility] Pediatrics MDE (chief complaint) Problems related to other legal circumstancesDieta ry counseling and surveillanceEncoun ter for exam of ears and hearing w/o abnormal findingsEncounter for exam of eyes and vision w/o abnormal findingsMild intermittent asthma without complicationMultip le allergiesMyopia of both eyesObesity (BMI 30.0-34.9) 9 Bills Kailee. [address], [id number] [address], [place], [address], [place]. 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
[2025-04-08 20:25] VITALS: BP 142/95; PULSE 93; RESP 16; TEMP 36.4; O2SAT 99; BMI 27.7
--- NOTE | 2025-04-08 20:26 | ED.GENADULT ---
HPI - General Adult General Chief complaint: ETOH/Substance Use Stated complaint: substance abuse (loss of consciousness ) Time Seen by Provider: 04/08/25 21:11 Source: patient Mode of arrival: ambulatory Limitations: no limitations History of Present Illness ED Provider: Rickie SOSA HPI narrative: The patient is a 19-year-old female presenting to the ED for evaluation of opioid abuse. The patient reports she smoked a bag of fentanyl around 08:00 this evening and then became woozy, patient became concerned she was overdosing and called her boyfriend to bring her to the ED. Patient denies actual loss of consciousness, patient did not require any administration of Narcan. The patient's boyfriend is present in the ED with the patient and advises he has 3 doses of Narcan in his car but did not need to use it as she was breathing through the event. The patient is now reporting she feels improved and is requesting discharge from the ED. Related Data Previous Rx's ?Medication ?Instructions ?Recorded acetaminophen 500 mg tablet 500 mg PO Q6H PRN fever or pain 03/03/25 (Tylenol Extra Strength) #14 tabs ciprofloxacin 0.3 %-dexamethasone 4 drp otic (ear) right Q12H 7 days 03/03/25 0.1 % ear drops,suspension #7.5 mL hydrocortisone 0.5 % topical cream 1 appl topical BID PRN rash #28.4 03/03/25 grams ibuprofen 600 mg tablet 600 mg PO Q8H PRN fever or pain 03/03/25 #14 tabs ondansetron 4 mg disintegrating 4 mg PO Q8H PRN nausea and 03/03/25 tablet vomiting #10 tabs Allergies Allergy/AdvReac Type Severity Reaction Status Date / Time No Known Allergies (No Known Allergy Verified 04/08/25 20:28 Allergies*) Review of Systems Review of Systems: Yes all other systems are reviewed and are negative PMFSH Past Medical History Medical History No pertinent past medical history Social History Social History Use of substances other than those prescribed or required for medical reasons: Yes Substance Use Type: Opiates Substance Use Frequency: Chronic Longstanding Last Used Substance: Just Prior to Admission Advance Directives: No Advance Directives Information Provided: No Physical Exam ED Vital Signs: Vital Signs - 24 hr 04/08/25 20:25 Temperature 97.6 F Pulse Rate 93 Respiratory Rate 16 Blood Pressure 142/95 H Pulse Oximetry 99 Oxygen Delivery Method Room Air BMI result Body Mass Index 27.7 CONSTITUTIONAL: The patient appears mildly unkempt but otherwise non-toxic, well nourished and in no acute distress. Vital signs as documented. HEAD: Atraumatic, normocephalic. EYES: EOMs grossly intact, pupils equal, conjunctiva clear, no exudate. ENT: Nares patent, no discharge. Airway patent, no audible stridor, visible mucosa is pink and moist without noted lesions. NECK: Trachea is midline, no obvious masses or gross abnormalities. CHEST: Symmetric movement, normal appearance. LUNGS: LS present and CTAB, no w/r/r. Non-labored work of breathing. CARDIAC: Regular Rhythm, S1/S2 appreciated, no murmurs, rubs or gallops. ABDOMEN: Abdomen soft and non-tender x4 quadrants, no palpable masses or organomegaly. : Deferred. EXTREMITIES: Normal tone, moves all extremities spontaneously without reported pain. No obvious acute injury or deformity noted. NEURO: Alert and oriented x3, CN II-XII appear grossly intact. Cerebellar Functioning grossly intact. No obvious sensory or motor deficits. Speech clear and appropriate. PSYCH: normal affect, appropriate eye contact, fluid speech, with appropriate response to questioning. No reported suicidality or homicidality. SKIN: Warm, dry, color appropriate, normal turgor. No rashes noted. Course Course Course Narrative: This is a Rapid Medical Exam performed in triage by Radha Simms PA-C. Full HPI, ROS and PE to be performed by primary ED provider. 19 yo F w/pmhx substance use presenting to the ED c/o I passed out s/p smoking Fentanyl 30 mins [employer] (1/2 bag) - States she is afraid to OD. Denies SI/HI. Admits to taking a sip of a beer - denies other substances PE: anxious, fidgety, ambulating w/steady gait, awake and alert. Plan: CALLE, observation Medical Decision Making Medical Decision Making MDM Narrative: 9:16 PM 04/08/2025 (Urszula SOSA): The patient is a 19-year-old female presenting to the ED for evaluation of opioid abuse. The patient reports she smoked a bag of fentanyl around 08:00 this evening and then became woozy, patient became concerned she was overdosing and called her boyfriend to bring her to the ED. Patient denies actual loss of consciousness, patient did not require any administration of Narcan. The patient's boyfriend is present in the ED with the patient and advises he has 3 doses of Narcan in his car but did not need to use it as she was breathing through the event. The patient is now reporting she feels improved and is requesting discharge from the ED. Exam is reassuring, the patient is alert and oriented to person place and time, does not appear under the influence of exogenous intoxicants, and appears capable of making her own informed medical decisions. The patient was offered substance abuse consultation with care team and declined. At this time patient will be discharged to the care of herself and her boyfriend. Take-home Narcan was deferred as patient's boyfriend stated he has 3 doses in the vehicle at this time. Admission/Observation Consideration of admission/observation: Escalation of care including admission/observation considered Lab Data MDM Lab Attestation statement: I reviewed the patient's lab results. External Record Review External record reviewed: Outpatient record Discharge Plan Discharge Clinical Impression: Opioid abuse Patient Disposition: Home, Self-Care Instructions: Narcotic Use Disorder (ED), Opioid Use Disorder (ED) Additional Instructions: Opiate use disorder You were seen in our Emergency Department today for treatment of opiate use disorder. The nurse has reviewed with you where to follow up and what information to bring with you, to continue treatment. You also may have been given naloxone (narcan) to take home with you. This medication is used to potentially treat opiate overdose. If you decide you want to stop or cut down on how much you?re using, you can call or walk into our outpatient Addiction Treatment office: [facility] (M-F 9am-5p) [address] [place] [address], [address] [phone] You may have been provided with safer injection?items, please take time to take care of YOU and your health. Use new supplies whenever possible to lessen the chances of infections and other illnesses.? ?If you need more supplies, please go [facility],? [address] [place], [place] you can call or text to coordinate delivery of safer supplies. You were also provided a list of several treatment providers in the area.? If you experience any worsening symptoms you cannot control please return to the ED or call 911. Please follow up at your next appointment. Things to look out for are fevers, chest pain, shortness of breath, severe pain, dizziness, fainting or any other concerns. Prescriptions: No Action acetaminophen [Tylenol Extra Strength] 500 mg tablet 500 mg PO Q6H PRN (Reason: fever or pain) Qty: 14 0RF ibuprofen 600 mg tablet 600 mg PO Q8H PRN (Reason: fever or pain) Qty: 14 0RF ondansetron 4 mg tablet,disintegrating 4 mg PO Q8H PRN (Reason: nausea and vomiting) Qty: 10 0RF hydrocortisone 0.5 % cream 1 appl topical BID PRN (Reason: rash) Qty: 28.4 0RF ciprofloxacin-dexamethasone 0.3-0.1 % drops,suspension 4 drp otic (ear) right Q12H 7 Days Qty: 7.5 0RF Print Language: Persian
--- NOTE | 2025-04-08 20:42 | PC.NURSE ---
Pt aox4 presents reporting smoking 1.5 bags of fentanyl 20 [place] [employer] and feels dizzy and like she is going to OD. Reports hx of OD, most recent last month. Breaths are even, regular, and unlabored. Ice pack provided as requested. Monitoring is ongoing.
[2025-04-08 20:45] VITALS: PULSE 93
--- OUTSIDE RECORDS SUMMARY | 2025-04-08 20:47 | XMS_ITS | Clinical Summary ---
Author Organization [facility] Address [address] [place] [address] Phone Care Team Providers Care Kitchen Chef Name Role Phone Physician, No Pcp Primary [...] PM EST - 03/09/2025 11:51 PM EST [facility] [address] [place] [phone] Discharge Disposition: Left Against Medical Advice 02/22/2025 2:56 PM EDT - 02/22/2025 6:24 PM EDT [facility] [address] [place] [phone] Meche Horn MD Discharge Disposition: Left Against Medical Advice 02/01/2025 7:47 PM EDT - 02/01/2025 8:55 PM EDT [facility] [address] [place] [phone] Lazaro Agosto MD Perichondritis of auricle, right (Primary Dx); Dyspepsia; Exposure to herpes Discharge Disposition: Home or Self Care 01/23/2025 5:05 PM EDT - 01/23/2025 7:08 PM EDT [facility] [address] [place] [phone] Rich Sanchez MD Nausea and vomiting, unspecified vomiting type (Primary Dx); Alcoholic intoxication without complication ([facility] V24); Hypokalemia; Hypomagnesemia; Alcohol abuse Discharge Disposition: Home or Self Care 01/19/2025 7:28 PM EDT - 01/19/2025 7:55 PM EDT Emergency [facility] Emergency [address] [place] [phone] Panic attack as reaction to stress (Primary Dx); Homeless Discharge Disposition: Home or Self Care from Last 3 Months Surgical History Surgery Date Site/Laterality Comments OTHER SURGICAL HISTORY PROCEDURE: DENIES PREVIOUS SURGERY Medical History Medical History Date Comments Asthma DX:Asthma Strep throat 05/30/12 DX:Strep throat Wrist fracture, left 08/21/2013 DX:Wrist fr acture, left; COMMENT: [facility] Family History Medical History Relation Name [...] not to disclose 2024 2:56 PM EDT Last Filed Vital Signs Vital Sign Reading [...] and culture (02/01/2025 8:13 PM EDT) Specific [place] Urine 1.027 1.003 - 1.030 LAB URINALYSIS - AUTOMATED METHOD 02/01/2025 9:05 PM [facility] pH, Urine 6.0 5.0 - 8.0 pH LAB URINALYSIS - AUTOMATED METHOD 02/01/2025 9:05 PM [facility] Leukocytes, Urine Small(A) Negative LAB URINALYSIS - AUTOMATED METHOD 02/01/2025 9:05 PM [facility] Nitrite, Urine Negative Negative LAB URINALYSIS - AUTOMATED METHOD 02/01/2025 9:05 PM [facility] Protein, Urine 30(A) <=Trace mg/dL LAB URINALYSIS - AUTOMATED METHOD 02/01/2025 9:05 PM [facility] Glucose, Urine Negative Negative mg/dL LAB URINALYSIS - AUTOMATED METHOD 02/01/2025 9:05 PM [facility] Ketones, Urine Trace(A) Negative mg/dL LAB URINALYSIS - AUTOMATED METHOD 02/01/2025 9:05 PM [facility] Urobilinogen, Urine 1.0 0.2 - 1.0 mg/dL LAB URINALYSIS - AUTOMATED METHOD 02/01/2025 9:05 PM [facility] Bilirubin, Urine Negative Negative LAB URINALYSIS - AUTOMATED METHOD 02/01/2025 9:05 PM [facility] Blood, Urine Negative Negative LAB URINALYSIS - AUTOMATED METHOD 02/01/2025 9:05 PM [facility] RBC, Urine 5.9(H) 0 - 4 /HPF LAB URINALYSIS - AUTOMATED METHOD 02/01/2025 9:05 PM EDT [facility] WBC, Urine 22.1(H) 0 - 4 /HPF LAB URINALYSIS - AUTOMATED METHOD 02/01/2025 9:05 PM EDT [facility] Squamous Epithelial, Urine 82(H) 0 - 60 /LPF LAB URINALYSIS - AUTOMATED METHOD 02/01/2025 9:05 PM EDT [facility] Bacteria, Urine Few(A) Negative /HPF LAB URINALYSIS - AUTOMATED METHOD 02/01/2025 9:05 PM EDT [facility] Hyaline Casts, Urine 4.8(H) 0 - 3 /LPF LAB URINALYSIS - AUTOMATED METHOD 02/01/2025 9:05 PM EDT [facility] Urine Urine specimen obtained by clean catch procedure / Unknown Non-blood Collection / Unknown 02/01/2025 8:13 PM EDT 02/01/2025 8:36 PM EDT us Dino Carbajal MD LAB URINE ORDERABLES Danuta l Result [facility] [address] [place] [address], [place] [phone] * Bain urine culture tube (02/01/2025 8:13 PM EDT) Extra Tube Hold for add-ons. 02/01/2025 10:02 PM EDT [facility] Comment:Auto resulted. Urine Urine specimen obtained by clean catch procedure / Unknown Non-blood Collection / Unknown 02/01/2025 8:13 PM EDT 02/01/2025 8:36 PM EDT us Dino Carbajal MD LAB URINE ORDERABLES Danuta l Result [facility] [address] [place] [address], [place] [phone] * Culture urine (02/01/2025 8:13 PM EDT) [facility] Culture, Urine >100,000 CFU/mL Mixed bacterial morphotypes present suggestive of possible contamination during collection. Suggest appropriate recollection if clinically indicated. 02/03/2025 12:39 PM EDT [facility] Urine Urine specimen obtained by clean catch procedure / Unknown Non-blood Collection / Unknown 02/01/2025 8:13 PM EDT 02/01/2025 9:04 PM EDT Dino Carbajal MD LAB MICROBIOLOGY - GENERA L ORDERABLES Final Result Performing Organization Address [facility] Co de Phone Number [facility] [address] [place] [address], [place] [phone] * (ABNORMAL) CBC auto differential (02/01/2025 7:38 PM EDT) Only the most recent of2 resultswithin the time period is included. [facility] WBC 5.1 4.8 - 10.8 K/mcL LAB HEMETOLOGY METHOD 02/01/2025 7:59 PM EDT [facility] RBC 4.90(H) 3.80 - 4.80 M/mcL LAB HEMETOLOGY METHOD 02/01/2025 7:59 PM EDT [facility] Hemoglobin 14.2 11.5 - 16.0 g/dL LAB HEMETOLOGY METHOD 02/01/2025 7:59 PM EDT [facility] Hematocrit 44.8 35.0 - 47.0 % LAB HEMETOLOGY METHOD 02/01/2025 7:59 PM EDT [facility] MCV 91.4 79.0 - 98.0 FL LAB HEMETOLOGY METHOD 02/01/2025 7:59 PM EDT [facility] MCH 29.0 27.0 - 32.0 pcg LAB HEMETOLOGY METHOD 02/01/2025 7:59 PM EDT [facility] MCHC 31.7(L) 32.0 - 37.0 g/dL LAB HEMETOLOGY METHOD 02/01/2025 7:59 PM [facility] RDW 13.4 11.0 - 15.0 % LAB HEMETOLOGY METHOD 02/01/2025 7:59 PM EDT [facility] Platelets 231 130 - 400 K/mcL LAB HEMETOLOGY METHOD 02/01/2025 7:59 PM EDT [facility] MPV 10.6 7.0 - 11.0 FL LAB HEMETOLOGY METHOD 02/01/2025 7:59 PM [facility] NRBC 0.0 <1.0 % LAB HEMETOLOGY METHOD 02/01/2025 7:59 PM T [facility] NRBC Absolute 0.00 <0.10 K/mcL LAB HEMETOLOGY METHOD 02/01/2025 7:59 PM [facility] Neutrophils Relative 47.2 % LAB HEMETOLOGY METHOD 02/01/2025 7:59 PM [facility] Lymphocytes Relative 33.1 % LAB HEMETOLOGY METHOD 02/01/2025 7:59 PM [facility] Monocytes Relative 11.5 % LAB HEMETOLOGY METHOD 02/01/2025 7:59 PM T [facility] Eosinophils Relative 6.0 % LAB HEMETOLOGY METHOD [facility] Basophils Relative 1.0 % LAB HEMETOLOGY METHOD 02/01/2025 7:59 PM [facility] Immature Granulocytes Relative 1.2 % LAB HEMETOLOGY METHOD 02/01/2025 7:59 PM EDT [facility] Neutrophils Absolute 2.43 1.50 - 7.00 K/mcL LAB HEMETOLOGY METHOD 02/01/2025 7:59 PM EDT [facility] Lymphocytes Absolute 1.70 1.00 - 5.00 K/mcL LAB HEMETOLOGY METHOD 02/01/2025 7:59 PM EDT [facility] Monocytes Absolute 0.59 0.20 - 1.00 K/mcL LAB HEMETOLOGY METHOD 02/01/2025 7:59 PM EDT [facility] Eosinophils Absolute 0.31 0.00 - 0.50 K/mcL LAB HEMETOLOGY METHOD 02/01/2025 7:59 PM EDT [facility] Basophils Absolute 0.05 0.00 - 0.20 K/mcL LAB HEMETOLOGY METHOD 02/01/2025 7:59 PM EDT [facility] Immature Granulocytes Absolute 0.06(H) 0.00 - 0.03 K/mcL LAB HEMETOLOGY METHOD 02/01/2025 7:59 PM EDT [facility] Blood Venous blood specimen / Unknown Venipuncture / Unknown 02/01/2025 7:38 PM EDT 02/01/2025 7:46 PM EDT us Dino Carbajal MD LAB BLOOD ORDERABLES [place] l Result [facility] [address] [place] [address], * Lipase (02/01/2025 7:38 PM EDT) Only the most recent of2 resultswithin the time period is included. Lipase 41 13 - 75 unit/L LAB CHEMISTRY METHOD 02/01/2025 8:17 PM EDT [facility] Blood Venous blood specimen / Unknown Venipuncture / Unknown 02/01/2025 7:38 PM EDT 02/01/2025 7:46 PM EDT us Lazaro Agosto MD LAB BLOOD ORDERABLES Final Resul t [facility] [address] [place] [address], [place] [phone] * Comprehensive metabolic panel (02/01/2025 7:38 PM EDT) Only the most recent of2 resultswithin the time period is included. Sodium 135 133 - 145 mmol/L LAB CHEMISTRY METHOD 02/01/2025 8:18 PM [facility] Potassium 4.2 3.5 - 5.5 mmol/L LAB CHEMISTRY METHOD 02/01/2025 8:18 PM [facility] Chloride 100 96 - 110 mmol/L LAB CHEMISTRY METHOD 02/01/2025 8:18 PM [facility] CO2 30 21 - 32 mmol/L LAB CHEMISTRY METHOD 02/01/2025 8:18 PM [facility] Anion Gap 5 3 - 11 LAB CHEMISTRY METHOD 02/01/2025 8:18 PM [facility] Glucose 97 70 - 100 mg/dL LAB CHEMISTRY METHOD 02/01/2025 8:18 PM [facility] BUN 6 5 - 25 mg/dL LAB CHEMISTRY METHOD 02/01/2025 8:18 PM [facility] Creatinine 0.68 0.50 - 1.10 mg/dL LAB CHEMISTRY METHOD 02/01/2025 8:18 PM [facility] eGFR 127 >=60 mL/min/1. 73m2 LAB CHEMISTRY METHOD 02/01/2025 8:18 PM [facility] Comment:Calculation based on the Chronic Kidney Disease Epidemiology Collaboration (CKD-EPI) equation refit without adjustment for race. BUN/Creatinine Ratio 8.8 LAB CHEMISTRY METHOD 02/[facility]2025 8:[facility] Calcium 9.5 8.5 - 10.5 mg/dL LAB CHEMISTRY METHOD 02/01/2025 8:18 PM EDT [facility] AST (SGOT) 23 10 - 42 unit/L LAB CHEMISTRY METHOD 02/01/2025 8:18 [facility] ALT (SGPT) 29 10 - 60 unit/L LAB CHEMISTRY METHOD 02/01/2025 8:18 PM EDT [facility] Alkaline Phosphatase 59 42 - 121 unit/L LAB CHEMISTRY METHOD 02/01/2025 8:18 PM [facility] Total Protein 7.5 6.0 - 8.0 g/dL LAB CHEMISTRY METHOD 02/01/2025 8:18 PM [facility] Albumin 4.1 3.2 - 5.0 g/dL LAB CHEMISTRY METHOD 02/01/2025 8:18 PM [facility] Total Bilirubin 0.5 0.0 - 1.4 mg/dL LAB CHEMISTRY METHOD 02/01/2025 8:18 PM T [facility] Blood Venous blood specimen / Unknown Venipuncture / Unknown 02/01/2025 7:38 PM EDT 02/01/2025 7:46 PM EDT us Dino Carbajal MD LAB BLOOD ORDERABLES Danuta l Result [facility] [address] [place] [address], * (ABNORMAL) Magnesium (01/23/2025 5:26 PM EDT) Magnesium 1.6(L) 1.9 - 2.6 mg/dL LAB CHEMISTRY METHOD 01/23/2025 6:17 PM EDT [facility] Blood Venous blood specimen / Unknown Venipuncture / Unknown 01/23/2025 5:26 PM EDT 01/23/2025 5:46 PM EDT Rich Sanchez MD LAB BLOOD ORDERABLES Final R esult [facility] [address] [place] [address], [place] [phone] * (ABNORMAL) Ethanol (01/23/2025 5:26 PM EDT) [facility] Ethanol Level 116(H) 0 - 10 mg/dL LAB CHEMISTRY METHOD 01/23/2025 6:17 PM EDT [facility] Blood Venous blood specimen / Unknown Venipuncture / Unknown 01/23/2025 5:26 PM EDT 01/23/2025 5:46 PM EDT Rich Sanchez MD LAB BLOOD ORDERABLES Final R esult [facility] [address] [place] [address], [place] [phone] * POC , urine manually resulted (01/23/2025 5:19 PM EDT) [facility] HCG, Ur POC Negative Negative POC hCG Int QC Pass? Yes Yes Urine Urine specimen obtained by clean catch procedure / Unknown 01/23/2025 5:19 PM EDT Rich Sanchez MD POINT OF CARE TEST ENTER/BHAVESH T ORDERABLES Final Result * (ABNORMAL) Urinalysis with reflex microscopic (01/23/2025 5:16 PM EDT) [facility] Specific [place] Urine 1.023 1.003 - 1.030 LAB URINALYSIS - AUTOMATED METHOD 01/23/2025 5:59 PM EDT [facility] pH, Urine 6.5 5.0 - 8.0 pH LAB URINALYSIS - AUTOMATED METHOD 01/23/2025 5:59 PM EDT [facility] Leukocytes, Urine Negative Negative LAB URINALYSIS - AUTOMATED METHOD 01/23/2025 5:59 PM EDT [facility] Nitrite, Urine Negative Negative LAB URINALYSIS - AUTOMATED METHOD 01/23/2025 5:59 PM EDT [facility] Protein, Urine Trace <=Trace mg/dL LAB URINALYSIS - AUTOMATED METHOD 01/23/2025 5:59 PM EDT [facility] Glucose, Urine Negative Negative mg/dL LAB URINALYSIS - AUTOMATED METHOD 01/23/2025 5:59 PM EDT [facility] Ketones, Urine Trace(A) Negative mg/dL LAB URINALYSIS - AUTOMATED METHOD 01/23/2025 5:59 PM EDT [facility] Urobilinogen, Urine 1.0 0.2 - 1.0 mg/dL LAB URINALYSIS - AUTOMATED METHOD 01/23/2025 5:59 PM EDT [facility] Bilirubin, Urine Negative Negative LAB URINALYSIS - AUTOMATED METHOD 01/23/2025 5:59 PM EDT [facility] Blood, Urine Negative Negative LAB URINALYSIS - AUTOMATED METHOD 01/23/2025 5:59 PM T [facility] Urine Urine specimen obtained by clean catch procedure / Unknown Non-blood Collection / Unknown 01/23/2025 5:16 PM EDT 01/23/2025 5:45 PM EDT us Rich Sanchez MD LAB URINE ORDERABLES Final R esult [facility] [address] [place] [address], [place] [phone] from Last 3 Months Insurance [employer] Care Teams Kitchen Chef Relationship Specialty Start Date End Date Physician, No Pcp PCP - General 11/15/24
[2025-04-08 21:25] VITALS: BP 114/82; PULSE 90; RESP 18; TEMP 36.7; O2SAT 99
== END 2025-04-08 21:25 | disposition home or self-care (01) ==
PROVIDERS: Emergency Provider Emergency Medicine
DX: F11.10 Opioid abuse, uncomplicated (principal)
CPT/HCPCS: 99283; 99284